=== PATIENT | female | born 1980 | race Caucasian/White ===

== ENCOUNTER 2016-08-28 12:00 | Emergency (ER) | payer MEDICARE, MEDICAID ==
--- NOTE | 2016-08-28 12:04 | EDM.PDOC ---
ED HPI GI/ABDOMINAL - General Chief Complaint: Abdominal Pain Stated Complaint: stomach Time Seen by Provider: 08/28/16 12:03 Source of Information: Reports: Patient, Old records, RN, RN notes reviewed History Limitations: Reports: No limitations - History of Present Illness INITIAL COMMENTS - FREE TEXT/NARRATIVE: C/O onset of generalized lower abdominal pain yesterday. Pt reports no stool output from her ostomy for approx. 30 hours, with liquid stooling the day prior to that. Denies blood in stool, mucus, fever/chills, N/V, or flank pain. Timing/Duration: Reports: Constant Location: generalized (lower abd.) Quality: Reports: ache, cramping Severity: moderate Improves with: Reports: other (nothing) Worsens with: Reports: other (nothing) Associated Symptoms (-Female): Reports: denies other symptoms - Related Data Allergies/ADRs: Allergies Allergy/AdvReac Type Severity Reaction Status Date / Time zolpidem tartrate Allergy Hallucinati Verified 08/28/16 12:09 [From Fernando] ons Home Meds: Home Meds Albuterol Sulfate 1.25 mg IH ASDIRECTED PRN 02/07/16 [History] Past Medical History HEENT History: Reports: None Cardiovascular History: Reports: Other (see below) Other Cardiovascular History: Sinus tach Respiratory History: Reports: Asthma, COPD Gastrointestinal History: Reports: Bowel obstruction, GERD Genitourinary History: Reports: Renal calculus [employer] History: Reports: None Musculoskeletal History: Reports: None Neurological History: Reports: None Psychiatric History: Reports: Anxiety, Depression Endocrine/Metabolic History: Reports: None Hematologic History: Reports: None Immunologic History: Reports: None Oncologic (Cancer) History: Reports: None Dermatologic History: Reports: None - Infectious Disease History Infectious Disease History: Reports: MRSA - Past Surgical History Head Surgeries/Procedures: Reports: None HEENT Surgical History: Reports: Myringotomy w tube(s), Tonsillectomy Cardiovascular Surgical History: Reports: Other (see below) Other Cardiovascular Surgeries/Procedures: ablations x4 GI Surgical History: Reports: Cholecystectomy, Colon, Colonoscopy, Small bowel, Other (see below) Other GI Surgeries/Procedures: ileostomy, has had 17 surg since ileostomy. Most recent was march 2016. Female Surgical History: Reports: section Other Female Surgeries/Procedures: Iliostomy tube Social & Family History - Family History Family Medical History: Noncontributory - Tobacco Use Smoking Status *Q: Current Every Day Smoker Years of Tobacco use: 10 Packs/Tins Daily: 1 Used Tobacco, but Quit: No Second Hand Smoke Exposure: Yes - Caffeine Use Caffeine Use: Reports: Coffee Other Caffeine Use: [facility] 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 ED EXAM, GI/ABD - Physical Exam Exam: See Below Exam Limited By: No limitations General Appearance: alert, WD/WN, no apparent distress Neck: normal inspection Respiratory/Chest: no respiratory distress, lungs clear, normal breath sounds, no accessory muscle use, chest non-tender Cardiovascular: regular rate, rhythm, no edema, tachycardia GI/Abdominal: soft, no distention, no abnormal bruit, hypoactive bowel sounds, tympanic bowel sounds, tenderness (gen. lower abd. tenderness without peritoneal signs). No: guarding, rebound, rigidity (Female) Exam: Deferred Rectal (Female) Exam: Deferred Back Exam: normal inspection. No: CVA tenderness (L), CVA tenderness (R) Extremities: normal inspection Neurological: alert, oriented, no motor/sensory deficits Psychiatric: flat affect Skin Exam: Warm, Dry, Intact, Normal color, No rash Course - Vital Signs Last Recorded V/S: Last Vital Signs Temp 36.3 C 08/28/16 12:04 Pulse 110 H 08/28/16 12:04 Resp 18 08/28/16 12:04 BP 91/67 08/28/16 12:04 Pulse Ox 99 08/28/16 12:04 - Orders/Labs/Meds Orders: Active Orders 24 hr Category Date Time Status Peripheral IV Care [RC] . DIRECTED Care 08/28/16 12:45 Active CHLAMYDIA TRACHOMATIS/GC AMPLF Routine Lab 08/28/16 12:52 Received CULTURE URINE [RM] Stat Lab 08/28/16 12:52 Received Sodium Chloride 0.9% [Saline Flush] Med 08/28/16 12:45 Active 10 ml FLUSH ASDIRECTED PRN cefTRIAXone [Rocephin] 1 gm Med 08/28/16 14:40 Ordered Sodium Chloride 0.9% [Normal Saline] 50 ml IV ONETIME Peripheral IV Insertion Adult [OM.PC] Stat Oth 08/28/16 12:45 Ordered Medication Orders Ceftriaxone Sodium 1 gm/ (Sodium Chloride) 50 mls @ 100 mls/hr IV ONETIME ONE Stop: 08/28/16 15:09 Last Admin: 08/28/16 14:48 Dose: 100 mls/hr Sodium Chloride (Saline Flush) 10 ml FLUSH ASDIRECTED PRN PRN Reason: Keep Vein Open Last Admin: 08/28/16 12:50 Dose: 10 ml Labs: Laboratory Tests 08/28/16 08/28/16 08/28/16 Range/Units 12:20 12:20 12:52 WBC 11.0 H (5.0-10.0) 10^3/uL RBC 5.78 H (4.2-5.4) 10^6/uL Hgb 15.1 (12.0-16.0) g/dL Hct 45.9 (37.0-47.0) % MCV 79.4 L (80-100) fL MCH 26.1 L (27.0-34.0) pg MCHC 32.9 L (33.0-35.0) g/dL Plt Count 303 (150-450) 10^3/uL Neut % (Auto) 77.6 H (42.2-75.2) % Lymph % (Auto) 16.2 L (20.5-50.1) % [place] % (Auto) 5.2 (2-8) % Eos % (Auto) 0.8 L (1.0-3.0) % Baso % (Auto) 0.2 (0.0-1.0) % Sodium 132 L (135-145) mmol/L Potassium 4.3 (3.6-5.0) mmol/L Chloride 98 L (101-111) mmol/L Carbon Dioxide 24.0 (21.0-31.0) mmol/L Anion Gap 14.3 BUN 19 H (7-18) mg/dL Creatinine 0.8 (0.6-1.3) mg/dL Est Cr Clr Drug Dosing 81.97 mL/min Estimated GFR (MDRD) > 60 BUN/Creatinine Ratio 23.75 Glucose 97 (74-105) mg/dL Calcium 10.2 (8.4-10.2) mg/dl Total Bilirubin 1.0 (0.2-1.0) mg/dL AST 14 (10-42) IU/L ALT 9 L (10-60) IU/L Alkaline Phosphatase 68 (42-121) IU/L Total Protein 8.8 H (6.7-8.2) g/dl Albumin 4.5 (3.2-5.5) g/dl Globulin 4.3 Albumin/Globulin Ratio 1.05 Amylase 29 (28-100) U/L Lipase 30 (22-51) U/L Urine Color (YELLOW) Urine Appearance (CLEAR) Urine pH (5.0-9.0) Ur Specific [place] (1.005-1.030) Urine Protein (NEGATIVE) Urine Glucose (UA) (NEGATIVE) Urine Ketones (NEGATIVE) Urine Occult Blood (NEGATIVE) Urine Nitrite (NEGATIVE) Urine Bilirubin (NEGATIVE) Urine Urobilinogen (0.2-1.0) mg/dL Ur Leukocyte Esterase (NEGATIVE) Urine RBC /HPF Urine WBC (0-5/HPF) /HPF Ur Epithelial Cells /HPF Urine Bacteria (0-FEW/HPF) /HPF Urine HCG, Qual Urine Opiates Screen Positive H (NEGATIVE) Ur Oxycodone Screen Negative (NEGATIVE) Urine Methadone Screen Negative (NEGATIVE) Ur Barbiturates Screen Negative (NEGATIVE) U Tricyclic Antidepress Negative (NEGATIVE) Ur Phencyclidine Scrn Negative (NEGATIVE) Ur Amphetamine Screen Positive H (NEGATIVE) U Methamphetamines Scrn Positive H (NEGATIVE) Urine MDMA Screen Negative (NEGATIVE) U Benzodiazepines Scrn Negative (NEGATIVE) Urine Cocaine Screen Negative (NEGATIVE) U Marijuana (THC) Screen Negative (NEGATIVE) 08/28/16 08/28/16 Range/Units 12:52 12:52 WBC (5.0-10.0) 10^3/uL RBC (4.2-5.4) 10^6/uL Hgb (12.0-16.0) g/dL Hct (37.0-47.0) % MCV (80-100) fL MCH (27.0-34.0) pg MCHC (33.0-35.0) g/dL Plt Count (150-450) 10^3/uL Neut % (Auto) (42.2-75.2) % Lymph % (Auto) (20.5-50.1) % [place] % (Auto) (2-8) % Eos % (Auto) (1.0-3.0) % Baso % (Auto) (0.0-1.0) % Sodium (135-145) mmol/L Potassium (3.6-5.0) mmol/L Chloride (101-111) mmol/L Carbon Dioxide (21.0-31.0) mmol/L Anion Gap BUN (7-18) mg/dL Creatinine (0.6-1.3) mg/dL Est Cr Clr Drug Dosing mL/min Estimated GFR (MDRD) BUN/Creatinine Ratio Glucose (74-105) mg/dL Calcium (8.4-10.2) mg/dl Total Bilirubin (0.2-1.0) mg/dL AST (10-42) IU/L ALT (10-60) IU/L Alkaline Phosphatase (42-121) IU/L Total Protein (6.7-8.2) g/dl Albumin (3.2-5.5) g/dl Globulin Albumin/Globulin Ratio Amylase (28-100) U/L Lipase (22-51) U/L Urine Color Yellow (YELLOW) Urine Appearance Cloudy (CLEAR) Urine pH 5.0 (5.0-9.0) Ur Specific [place] <= 1.005 (1.005-1.030) Urine Protein 30 H (NEGATIVE) Urine Glucose (UA) Negative (NEGATIVE) Urine Ketones Negative (NEGATIVE) Urine Occult Blood Large H (NEGATIVE) Urine Nitrite Positive H (NEGATIVE) Urine Bilirubin Negative (NEGATIVE) Urine Urobilinogen 0.2 (0.2-1.0) mg/dL Ur Leukocyte Esterase Small H (NEGATIVE) Urine RBC 50-75 H /HPF Urine WBC 50-75 H (0-5/HPF) /HPF Ur Epithelial Cells Moderate H /HPF Urine Bacteria Rare (0-FEW/HPF) /HPF Urine HCG, Qual Negative Urine Opiates Screen (NEGATIVE) Ur Oxycodone Screen (NEGATIVE) Urine Methadone Screen (NEGATIVE) Ur Barbiturates Screen (NEGATIVE) U Tricyclic Antidepress (NEGATIVE) Ur Phencyclidine Scrn (NEGATIVE) Ur Amphetamine Screen (NEGATIVE) U Methamphetamines Scrn (NEGATIVE) Urine MDMA Screen (NEGATIVE) U Benzodiazepines Scrn (NEGATIVE) Urine Cocaine Screen (NEGATIVE) U Marijuana (THC) Screen (NEGATIVE) Meds: Medications Generic Name Dose Route Start Last Admin Trade Name Freq PRN Reason Stop Dose Admin Ceftriaxone Sodium 1 gm/ 50 mls @ 100 mls/hr 08/28/16 14:40 08/28/16 14:48 Sodium Chloride IV 08/28/16 15:09 100 mls/hr ONETIME ONE Administration Sodium Chloride 10 ml 08/28/16 12:45 08/28/16 12:50 Saline Flush FLUSH 10 ml ASDIRECTED PRN Administration Keep Vein Open Discontinued Medications Generic Name Dose Route Start Last Admin Trade Name Freq PRN Reason Stop Dose Admin Azithromycin 1,000 mg 08/28/16 14:40 08/28/16 14:48 Zithromax PO 08/28/16 14:41 1,000 mg ONETIME ONE Administration Hydromorphone HCl 1 mg 08/28/16 12:44 08/28/16 12:51 Dilaudid IVPUSH 08/28/16 12:45 1 mg ONETIME ONE Administration Sodium Chloride 1,000 mls @ 999 mls/hr 08/28/16 12:44 08/28/16 12:52 Normal Saline IV 08/28/16 13:44 999 mls/hr .BOLUS ONE Administration Iopamidol 75 ml 08/28/16 12:48 08/28/16 13:20 Isovue-300 (61%) IVPUSH 08/28/16 12:49 75 ml ONETIME ONE Administration Ondansetron HCl 4 mg 08/28/16 12:44 08/28/16 12:51 Zofran IV 08/28/16 12:45 4 mg ONETIME ONE Administration - Radiology Interpretation Free Text/Narrative:: CT Abd/Pelvis: no SBO, thickened uterus, see Rad. report. Departure - Departure Time of Disposition: 14:43 Disposition: Home, Self-Care 01 Condition: fair Clinical Impression: Abdominal pain Qualifiers: Abdominal location: lower abdomen, unspecified Qualified Code(s): R10.30 - Lower abdominal pain, unspecified UTI (urinary tract infection) Qualifiers: Urinary tract infection type: site unspecified Hematuria presence: without hematuria Qualified Code(s): N39.0 - Urinary tract infection, site not specified Menorrhagia Qualifiers: Menorrahagia type: with regular cycle Qualified Code(s): N92.0 - Excessive and frequent menstruation with regular cycle Instructions: Abdominal Pain, Adult, [id number], Constipation, Adult, Easy-to -Read, Menorrhagia, [id number] Forms: ED Department Discharge Additional Instructions: Rx: Cipro 500mg Rx: Zofran 4mg ODT Drink plenty of water. Follow up in clinic in 3 to 4 days with your doctor for recheck, repeat urine test, and for further evaluation of your heavy periods and uterus CT scan findings. Return to ER if worse at any time. - My Orders Last 24 Hours: My Active Orders 08/28/16 12:45 Peripheral IV Care [RC] . DIRECTED Sodium Chloride 0.9% [Saline Flush] 10 ml FLUSH ASDIRECTED PRN Peripheral IV Insertion Adult [OM.PC] Stat 08/28/16 12:52 CHLAMYDIA TRACHOMATIS/GC AMPLF Routine CULTURE URINE [RM] Stat 08/28/16 14:40 cefTRIAXone [Rocephin] 1 gm Sodium Chloride 0.9% [Normal Saline] 50 ml IV ONETIME - Assessment/Plan Last 24 Hours: My Active Orders 08/28/16 12:45 Peripheral IV Care [RC] . DIRECTED Sodium Chloride 0.9% [Saline Flush] 10 ml FLUSH ASDIRECTED PRN Peripheral IV Insertion Adult [OM.PC] Stat 08/28/16 12:52 CHLAMYDIA TRACHOMATIS/GC AMPLF Routine CULTURE URINE [RM] Stat 08/28/16 14:40 cefTRIAXone [Rocephin] 1 gm Sodium Chloride 0.9% [Normal Saline] 50 ml IV ONETIME
[2016-08-28] MEDS ORDERED: Sodium Chloride 0.9% 1,000 ML IV ONE (12:44)
[2016-08-28] MEDS ORDERED: HYDROmorphone 1 MG/ML Syringe IVPUSH ONE (12:44)
[2016-08-28] MEDS ORDERED: Ondansetron 4 MG/2 ML SDV IV ONE (12:44)
[2016-08-28] MEDS ORDERED: Sodium Chloride 0.9% 10 ML Syringe FLUSH PRN (12:45)
[2016-08-28] MEDS ORDERED: Iopamidol 612 MG/ML 75 ML Bottle IVPUSH ONE (12:48)
[2016-08-28 13:03] LABS: CHLORIDE,CL 98 mmol/L (101-111); SODIUM,NA 132 mmol/L (135-145)
--- NOTE | 2016-08-28 13:41 | CT ---
CLINICAL HISTORY: 32-year-old 120 pound female smoker with abdominal pain and "no ostomy output for 30 hours". History of colon surgery (colostomy) and cholecystectomy. SCAN TECHNIQUE: Volume acquisition of data from the abdomen and pelvis obtained without oral but dur ing the intravenous administration 75 cc (3 cc/sec via injector) nonionic Isovue contrast while the patient was lying supine on the Siemens multislice CT scanner [facility]. All data archived in the PACS system for storage, reformatting and study. INTERPRETATION: 1. Fluid-filled distended stomach in the left upper quadrant but there is a generalized paucity of f luid in the small intestine and no stool appreciated in the remaining colon (apparent ileostomy righ t lower quadrant). No current signs of mechanical small bowel obstruction. 2. Surgical sutures in the pelvis and gallbladder fossa right upper quadrant. 3. Proliferative appearing endometrium with fluid (sac?) centrally, in the uterus. ? Serum HCG? 4. Liver, spleen, pancreas, adrenal glands and kidneys anatomically correct (solitary large 9.9 x 7. 5 mm calcification pelvis left kidney). No other signs of nephrolithiasis or obstructive uropathy. 5. No pelvic or abdominal mass lesion, ascites or free intraperitoneal air. Normal aorta. 6. Lung bases clear. Lumbar spine unremarkable. CONCLUSION: Postoperative changes. Intrauterine ? (See above). Clinical? Ileostomy right lo wer quadrant. No current signs of mechanical small bowel obstruction.
[2016-08-28] MEDS ORDERED: cefTRIAXone 1 GM in Sodium Chloride 0.9% 50 ML IV ONE (14:40)
[2016-08-28] MEDS ORDERED: Azithromycin 250 MG Tab PO ONE (14:40)
[2016-08-28 14:52] VITALS: BP 91/63
== END 2016-08-28 15:24 | disposition home or self-care (01) ==
LOC: DL.ED 12:00
DX: N39.0 Urinary tract infection, site not specified (principal); N92.0 Excessive and frequent menstruation with regular cycle; J45.909 Unspecified asthma, uncomplicated; J44.9 Chronic obstructive pulmonary disease, unspecified; K21.9 Gastro-esophageal reflux disease without esophagitis; F41.9 Anxiety disorder, unspecified; F17.210 Nicotine dependence, cigarettes, uncomplicated; F32.9 Major depressive disorder, single episode, unspecified; Z98.890 Other specified postprocedural states; Z90.49 Acquired absence of other specified parts of digestive tract; Z88.8 Allergy status to other drugs, medicaments and biological substances
CPT/HCPCS: 36415; 74177; 80053; 80305; 81001; 81025; 82150; 83690; 85025; 87086; 87088; 87186; 87491; 87591; 96361; 96365; 96375; 99284; A9270; J0696; J1170; J2405; J7030; J7050; Q9967

== ENCOUNTER 2016-11-23 11:38 | Emergency (ER) | payer MEDICARE, BC ==
[2016-11-23] MEDS ORDERED: Sodium Chloride 0.9% 10 ML Syringe FLUSH PRN (12:04)
--- NOTE | 2016-11-23 12:05 | EDM.PDOC ---
ED HPI GENERAL MEDICAL PROBLEM - General Chief Complaint: Abdominal Pain Stated Complaint: [id number] STOMACH Time Seen by Provider: 11/23/16 11:58 Source of Information: Reports: Patient - History of Present Illness INITIAL COMMENTS - FREE TEXT/NARRATIVE: patient has had several abd sx resulting in colostomy- today presents with diffuse abd pain- and decrease colostomy output for the last 12 hours. no nausea no vomiting. Location: Reports: Abdomen Quality: Reports: Ache, Dull Severity: Moderate Improves with: Reports: None Worsens with: Reports: None Treatments STRUCTURAL MANAGER: Denies: Acetaminophen, Aspirin Abdominal Pain Score (Numeric/FACES): 8 - Related Data Allergies Allergy/AdvReac Type Severity Reaction Status Date / Time zolpidem tartrate Allergy Hallucinati Verified 11/23/16 11:44 [From Fernando] ons Home Meds: Home Meds Albuterol Sulfate 1.25 mg IH ASDIRECTED PRN 02/07/16 [History] Past Medical History HEENT History: Reports: None Cardiovascular History: Reports: Other (See Below) Other Cardiovascular History: wolfs parkinson white Respiratory History: Reports: Asthma, COPD Gastrointestinal History: Reports: Bowel Obstruction, GERD Genitourinary History: Reports: Renal Calculus 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 Musculoskeletal History: Reports: None Neurological History: Reports: None Psychiatric History: Reports: Anxiety, Depression Endocrine/Metabolic History: Reports: None Hematologic History: Reports: None Immunologic History: Reports: None Oncologic (Cancer) History: Reports: None Dermatologic History: Reports: None - Infectious Disease History Infectious Disease History: Reports: MRSA - Past Surgical History Head Surgeries/Procedures: Reports: None HEENT Surgical History: Reports: Myringotomy w Tube(s), Tonsillectomy GI Surgical History: Reports: Cholecystectomy, Colon, Colonoscopy, Small Bowel, Other (See Below) Female Surgical History: Reports: Section Social & Family History - Family History Family Medical History: Noncontributory - Tobacco Use Smoking Status *Q: Current Every Day Smoker Years of Tobacco use: 16 Packs/Tins Daily: 1 Used Tobacco, but Quit: No Second Hand Smoke Exposure: Yes - Caffeine Use Caffeine Use: Reports: Soda Other Caffeine Use: mt. dewaylon 3-4/day - Alcohol Use Days Per Week of Alcohol Use: 0 - Recreational Drug Use Recreational Drug Use: No Drug Use in Last 12 Months: Yes Recreational Drug Type: Reports: Marijuana/Hashish Recreational Drug Use Frequency: Weekly - Living Situation & Occupation Living situation: Reports: Single Occupation: Employed ED ROS GENERAL - Review of Systems Review Of Systems: See Below Constitutional: Denies: Fever, Chills, Malaise, Weakness HEENT: Reports: No Symptoms Respiratory: Reports: No Symptoms Cardiovascular: Reports: No Symptoms GI/Abdominal: Reports: Abdominal Pain Skin: Reports: No Symptoms Neurological: Reports: No Symptoms Psychiatric: Reports: Anxiety ED EXAM, GI/ABD - Physical Exam Exam: See Below Exam Limited By: No Limitations General Appearance: Alert, Anxious Head: Atraumatic, Normocephalic Neck: Normal Inspection, Supple, Non-Tender, Full Range of Motion Respiratory/Chest: No Respiratory Distress, Lungs Clear, Normal Breath Sounds, No Accessory Muscle Use, Chest Non-Tender Cardiovascular: Normal Peripheral Pulses, Regular Rate, Rhythm, No Edema, No Gallop, No JVD, No Murmur, No Rub GI/Abdominal: Soft, No Distention, No Abnormal Bruit, No Mass, Hypoactive Bowel Sounds, Other (colostomy intact-) Course - Vital Signs Last Recorded V/S: Last Vital Signs Temp 98.6 F 11/23/16 13:08 Pulse 86 11/23/16 13:08 Resp 16 11/23/16 13:08 BP 98/56 L 11/23/16 13:08 Pulse Ox 100 11/23/16 13:08 - Orders/Labs/Meds Orders: Active Orders 24 hr Category Date Time Status CULTURE BLOOD [BC] Stat Lab 11/23/16 12:58 Received CULTURE URINE [RM] Stat Lab 11/23/16 12:06 Received Sodium Chloride 0.9% [Saline Flush] Med 11/23/16 12:04 Active 10 ml FLUSH ASDIRECTED PRN cefTRIAXone [Rocephin] 1 gm Med 11/23/16 13:15 Active Sodium Chloride 0.9% [Normal Saline] 50 ml IV ONETIME Saline Lock Insert [OM.PC] Routine Oth 11/23/16 12:04 Ordered Medication Orders Ceftriaxone Sodium 1 gm/ (Sodium Chloride) 50 mls @ 100 mls/hr IV ONETIME ONE Stop: 11/23/16 13:44 Last Admin: 11/23/16 13:23 Dose: Sodium Chloride (Saline Flush) 10 ml FLUSH ASDIRECTED PRN PRN Reason: Keep Vein Open Last Admin: 11/23/16 12:10 Dose: 10 ml Labs: Laboratory Tests 11/23/16 11/23/16 11/23/16 Range/Units 12:00 12:05 12:05 WBC 14.7 H (5.0-10.0) 10^3/uL RBC 4.73 (4.2-5.4) 10^6/uL Hgb 13.3 (12.0-16.0) g/dL Hct 40.5 (37.0-47.0) % MCV 85.6 (80-100) fL MCH 28.1 (27.0-34.0) pg MCHC 32.8 L (33.0-35.0) g/dL Plt Count 221 (150-450) 10^3/uL Neut % (Auto) 81.1 H (42.2-75.2) % Lymph % (Auto) 11.0 L (20.5-50.1) % Greenlee % (Auto) 6.7 (2-8) % Eos % (Auto) 1.1 (1.0-3.0) % Baso % (Auto) 0.1 (0.0-1.0) % Sodium 135 (135-145) mmol/L Potassium 3.9 (3.6-5.0) mmol/L Chloride 103 (101-111) mmol/L Carbon Dioxide 24.0 (21.0-31.0) mmol/L Anion Gap 11.9 BUN 9 (7-18) mg/dL Creatinine 0.6 (0.6-1.3) mg/dL Est Cr Clr Drug Dosing 104.06 mL/min Estimated GFR (MDRD) > 60 BUN/Creatinine Ratio 15.00 Glucose 91 (74-105) mg/dL Calcium 8.9 (8.4-10.2) mg/dl Total Bilirubin 0.8 (0.2-1.0) mg/dL AST 16 (10-42) IU/L ALT 7 L (10-60) IU/L Alkaline Phosphatase 62 (42-121) IU/L Creatine Kinase 31 (26-174) IU/L Total Protein 6.9 (6.7-8.2) g/dl Albumin 3.5 (3.2-5.5) g/dl Globulin 3.4 Albumin/Globulin Ratio 1.03 Lipase 30 (22-51) U/L Urine Color (YELLOW) Urine Appearance (CLEAR) Urine pH (5.0-9.0) Ur Specific [place] (1.005-1.030) Urine Protein (NEGATIVE) Urine Glucose (UA) (NEGATIVE) Urine Ketones (NEGATIVE) Urine Occult Blood (NEGATIVE) Urine Nitrite (NEGATIVE) Urine Bilirubin (NEGATIVE) Urine Urobilinogen (0.2-1.0) mg/dL Ur Leukocyte Esterase (NEGATIVE) Urine RBC /HPF Urine WBC (0-5/HPF) /HPF Ur Epithelial Cells /HPF Urine Bacteria (0-FEW/HPF) /HPF Urinalysis Comment Urine HCG, Qual Negative 11/23/16 Range/Units 12:06 WBC (5.0-10.0) 10^3/uL RBC (4.2-5.4) 10^6/uL Hgb (12.0-16.0) g/dL Hct (37.0-47.0) % MCV (80-100) fL MCH (27.0-34.0) pg MCHC (33.0-35.0) g/dL Plt Count (150-450) 10^3/uL Neut % (Auto) (42.2-75.2) % Lymph % (Auto) (20.5-50.1) % Greenlee % (Auto) (2-8) % Eos % (Auto) (1.0-3.0) % Baso % (Auto) (0.0-1.0) % Sodium (135-145) mmol/L Potassium (3.6-5.0) mmol/L Chloride (101-111) mmol/L Carbon Dioxide (21.0-31.0) mmol/L Anion Gap BUN (7-18) mg/dL Creatinine (0.6-1.3) mg/dL Est Cr Clr Drug Dosing mL/min Estimated GFR (MDRD) BUN/Creatinine Ratio Glucose (74-105) mg/dL Calcium (8.4-10.2) mg/dl Total Bilirubin (0.2-1.0) mg/dL AST (10-42) IU/L ALT (10-60) IU/L Alkaline Phosphatase (42-121) IU/L Creatine Kinase (26-174) IU/L Total Protein (6.7-8.2) g/dl Albumin (3.2-5.5) g/dl Globulin Albumin/Globulin Ratio Lipase (22-51) U/L Urine Color Yellow (YELLOW) Urine Appearance Cloudy (CLEAR) Urine pH 5.0 (5.0-9.0) Ur Specific [place] >= 1.030 (1.005-1.030) Urine Protein 30 H (NEGATIVE) Urine Glucose (UA) Negative (NEGATIVE) Urine Ketones Negative (NEGATIVE) Urine Occult Blood Large H (NEGATIVE) Urine Nitrite Positive H (NEGATIVE) Urine Bilirubin Negative (NEGATIVE) Urine Urobilinogen 0.2 (0.2-1.0) mg/dL Ur Leukocyte Esterase Small H (NEGATIVE) Urine RBC 5-10 H /HPF Urine WBC 10-20 H (0-5/HPF) /HPF Ur Epithelial Cells Many H /HPF Urine Bacteria Many H (0-FEW/HPF) /HPF Urinalysis Comment Urine HCG, Qual Meds: Medications Generic Name Dose Route Start Last Admin Trade Name Freq PRN Reason Stop Dose Admin Ceftriaxone Sodium 1 gm/ 50 mls @ 100 mls/hr 11/23/16 13:15 11/23/16 13:23 Sodium Chloride IV 11/23/16 13:44 Not Given ONETIME ONE Sodium Chloride 10 ml 11/23/16 12:04 11/23/16 12:10 Saline Flush FLUSH 10 ml ASDIRECTED PRN Administration Keep Vein Open Discontinued Medications Generic Name Dose Route Start Last Admin Trade Name Freq PRN Reason Stop Dose Admin Ceftriaxone Sodium Confirm 11/23/16 13:18 11/23/16 13:23 Rocephin Administered 11/23/16 13:19 1 gm Dose Administration 1 gm .ROUTE .STK-MED ONE Sodium Chloride 1,000 mls @ 999 mls/hr 11/23/16 12:10 11/23/16 12:12 Normal Saline IV 11/23/16 13:10 999 mls/hr .BOLUS ONE Administration Iopamidol 75 ml 11/23/16 13:01 11/23/16 13:08 Isovue-300 (61%) IVPUSH 11/23/16 13:02 75 ml ONETIME ONE Administration Morphine Sulfate 4 mg 11/23/16 12:25 11/23/16 12:29 Morphine IVPUSH 11/23/16 12:26 4 mg ONETIME ONE Administration Ondansetron HCl 4 mg 11/23/16 12:25 11/23/16 12:29 Zofran IV 11/23/16 12:26 4 mg ONETIME ONE Administration - Radiology Interpretation Free Text/Narrative:: CT abd/ pelvis with IV constrast- shows multiple distended (fluid-filled) loops of small bowels there are some air fluid level suggesting high grade mechanical bowel obstruction. per radiology report. - Re-Assessments/Exams Free Text/Narrative Re-Assessment/Exam: 11/23/16 13:35 Patient was told of results and need for transfer for surgical evaluation of small bowel obstruction. Patient states she must leave b/c she does not have anyone to take care of her son. She was advised of the seriousness of this diagnosis and the need to be seen by surgery very soon. she signed out against medical advise. Departure - Departure Time of Disposition: 13:32 Disposition: Against Medical Advice 07 Condition: fair (pain controlled ) Clinical Impression: Small bowel obstruction Abdominal pain Qualifiers: Abdominal location: lower abdomen, unspecified Qualified Code(s): R10.30 - Lower abdominal pain, unspecified UTI (urinary tract infection) Qualifiers: Urinary tract infection type: site unspecified Hematuria presence: without hematuria Qualified Code(s): N39.0 - Urinary tract infection, site not specified - Discharge Information Forms: ED Department Discharge Additional Instructions: YOU have a small bowel obstruction and need surgery- YOU are leaving against medical advise --but NEED to be seen by surgery in [place] or [facility] where your GI doctor is located. RETURN when childcare is taken care of if not able to go to [place] or [facility] - My Orders Last 24 Hours: My Active Orders 11/23/16 12:04 Sodium Chloride 0.9% [Saline Flush] 10 ml FLUSH ASDIRECTED PRN Saline Lock Insert [OM.PC] Routine 11/23/16 12:06 CULTURE URINE [RM] Stat 11/23/16 12:58 CULTURE BLOOD [BC] Stat 11/23/16 13:15 cefTRIAXone [Rocephin] 1 gm Sodium Chloride 0.9% [Normal Saline] 50 ml IV ONETIME - Assessment/Plan Last 24 Hours: My Active Orders 11/23/16 12:04 Sodium Chloride 0.9% [Saline Flush] 10 ml FLUSH ASDIRECTED PRN Saline Lock Insert [OM.PC] Routine 11/23/16 12:06 CULTURE URINE [RM] Stat 11/23/16 12:58 CULTURE BLOOD [BC] Stat 11/23/16 13:15 cefTRIAXone [Rocephin] 1 gm Sodium Chloride 0.9% [Normal Saline] 50 ml IV ONETIME
[2016-11-23] MEDS ORDERED: Sodium Chloride 0.9% 1,000 ML IV ONE (12:10)
[2016-11-23] MEDS ORDERED: Morphine 4 MG/ML Syringe IVPUSH ONE (12:25)
[2016-11-23] MEDS ORDERED: Ondansetron 4 MG/2 ML SDV IV ONE (12:25)
[2016-11-23 12:34] LABS: CHLORIDE,CL 103 mmol/L (101-111); SODIUM,NA 135 mmol/L (135-145)
[2016-11-23] MEDS ORDERED: Iopamidol 612 MG/ML 75 ML Bottle IVPUSH ONE (13:01)
[2016-11-23 13:08] VITALS: BP 98/56
[2016-11-23] MEDS ORDERED: cefTRIAXone 1 GM in Sodium Chloride 0.9% 50 ML IV ONE (13:15)
--- NOTE | 2016-11-23 13:16 | CT ---
Clinical history: 36-year-old 110 pound female smoker again in the emergency department with abdomin al pain (obstruction?) ....who has a significant past history of more than 20 abdominal surgeries in cluding cholecystectomy, appendectomy and "bowel obstructions". Please reevaluate this patient with right lower quadrant "colostomy" (ileostomy?). Patient reported on recent August 2016 CT scan to hav e "ileostomy right lower quadrant and other postoperative changes; abnormal uterus; no sign of mecha nical bowel obstruction". Scan technique: Volume acquisition of data from the abdomen and pelvis obtained without oral or IV c ontrast while the patient was lying supine on the Siemens multi slice CT scanner [facility]. All data archived in the PACS system for storage, reformatting and study . Interpretation: Abnormal. 1. Ventral wall defect/surgical ostomy RLQ. Cluster surgical jared sigmoid colon mid pelvis. 2.*Multiple distended (fluid-filled) loops of small intestine line and although mostly filled with f luid there are some air-fluid level suggesting high-grade mechanical bowel obstruction.... Definite change when compared directly to previous CT scan abdomen 28 August 2016. 3. What appears to be gallbladder RUQ with inflamed wall and at least one discrete round intralumina l gallstone. (History "cholecystectomy"?) Clinical correlation please. 4. Surgical clips mid epigastrium and retroperitoneum. Solitary large densely calcified 9.[address] stone in the left renal pelvis. No other signs of nephrolithiasis or obstructive uropathy. 5. Liver cyst, stomach, spleen, pancreas, adrenal glands and kidneys otherwise unremarkable. 6. Uterus with fluid in the endometrial canal. No pelvic or abdominal mass lesion, signs of retroper itoneal lymphadenopathy, ascites or free intraperitoneal air. 7. Normal caliber abdominal aorta. Lumbar spine unremarkable. Lung bases clear. CONCLUSION: Mechanical small bowel obstruction. (See above)
[2016-11-23] MEDS ORDERED: cefTRIAXone 1 GM Vial ONE (13:18)
== END 2016-11-23 13:33 | disposition left against medical advice (07) ==
LOC: DL.ED 11:38
DX: K56.60 Unspecified intestinal obstruction (principal); N39.0 Urinary tract infection, site not specified; J44.9 Chronic obstructive pulmonary disease, unspecified; J45.909 Unspecified asthma, uncomplicated; F17.210 Nicotine dependence, cigarettes, uncomplicated; K21.9 Gastro-esophageal reflux disease without esophagitis; Z88.8 Allergy status to other drugs, medicaments and biological substances; Z96.22 Myringotomy tube(s) status; Z98.890 Other specified postprocedural states; Z90.49 Acquired absence of other specified parts of digestive tract
CPT/HCPCS: 36415; 74177; 80053; 81001; 81025; 82550; 83690; 85025; 87040; 87086; 87088; 87186; 96365; 96375; 99285; J0696; J2270; J2405; J7030; J7050; Q9967

== ENCOUNTER 2016-11-23 15:20 | Emergency (ER) | payer MEDICARE, BC ==
[2016-11-23 15:33] VITALS: BP 102/75
[2016-11-23] MEDS ORDERED: Ondansetron 4 MG/2 ML SDV IV ONE (15:34)
[2016-11-23] MEDS ORDERED: Morphine 4 MG/ML Syringe IVPUSH ONE (15:34)
[2016-11-23] MEDS ORDERED: Sodium Chloride 0.9% 10 ML Syringe FLUSH PRN (15:36)
--- NOTE | 2016-11-23 15:42 | EDM.PDOC ---
ED HPI GENERAL MEDICAL PROBLEM - General Chief Complaint: Abdominal Pain Stated Complaint: [id number] STOMACH Time Seen by Provider: 11/23/16 15:30 Source of Information: Reports: Patient History Limitations: Reports: No Limitations - History of Present Illness INITIAL COMMENTS - FREE TEXT/NARRATIVE: Patient seen here earlier today left AMA and now returns for transfer due to small obstruction Abdomen Pain Score (Numeric/FACES): 8 - Related Data Allergies Allergy/AdvReac Type Severity Reaction Status Date / Time zolpidem tartrate Allergy Hallucinati Verified 11/23/16 11:44 [From Fernando] ons Home Meds: Home Meds Albuterol Sulfate 1.25 mg IH ASDIRECTED PRN 02/07/16 [History] Past Medical History HEENT History: Reports: None Cardiovascular History: Reports: Other (See Below) Other Cardiovascular History: wolfs parkinson white Respiratory History: Reports: Asthma, COPD Gastrointestinal History: Reports: Bowel Obstruction, GERD Genitourinary History: Reports: Renal 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 Musculoskeletal History: Reports: None Neurological History: Reports: None Psychiatric History: Reports: Anxiety, Depression Endocrine/Metabolic History: Reports: None Hematologic History: Reports: None Immunologic History: Reports: None Oncologic (Cancer) History: Reports: None Dermatologic History: Reports: None - Infectious Disease History Infectious Disease History: Reports: MRSA - Past Surgical History Head Surgeries/Procedures: Reports: None HEENT Surgical History: Reports: Myringotomy w Tube(s), Tonsillectomy GI Surgical History: Reports: Cholecystectomy, Colon, Colonoscopy, Small Bowel, Other (See Below) Female Surgical History: Reports: Section Social & Family History - Family History Family Medical History: Noncontributory - Tobacco Use Smoking Status *Q: Current Every Day Smoker Years of Tobacco use: 16 Packs/Tins Daily: 1 Used Tobacco, but Quit: No Second Hand Smoke Exposure: Yes - Caffeine Use Caffeine Use: Reports: None Other Caffeine Use: mtJose De Jesus burdick 3-4/day - Alcohol Use Days Per Week of Alcohol Use: 0 - Recreational Drug Use Recreational Drug Use: No Drug Use in Last 12 Months: Yes Recreational Drug Type: Reports: Marijuana/Hashish Recreational Drug Use Frequency: Weekly - Living Situation & Occupation Living situation: Reports: Single Occupation: Employed ED ROS GENERAL - Review of Systems Review Of Systems: See Below Constitutional: Reports: Fatigue. Denies: Fever, Chills, Malaise HEENT: Reports: No Symptoms Respiratory: Reports: No Symptoms Cardiovascular: Reports: No Symptoms Endocrine: Reports: No Symptoms GI/Abdominal: Reports: Abdominal Pain : Reports: No Symptoms Musculoskeletal: Reports: No Symptoms Skin: Reports: No Symptoms Neurological: Reports: No Symptoms Psychiatric: Reports: No Symptoms ED EXAM, GI/ABD - Physical Exam Exam: See Below Exam Limited By: No Limitations General Appearance: Alert, WD/WN, Anxious Eyes: Bilateral: Normal Appearance Ears: Normal External Exam, Normal Canal, Hearing Grossly Normal, Normal TMs Nose: Normal Inspection, Normal Mucosa, No Blood Throat/Mouth: Normal Inspection, Normal Lips, Normal Teeth, Normal Gums, Normal Oropharynx, Normal Voice, No Airway Compromise Head: Atraumatic, Normocephalic Neck: Normal Inspection, Supple, Non-Tender, Full Range of Motion Respiratory/Chest: No Respiratory Distress, Lungs Clear, Normal Breath Sounds, No Accessory Muscle Use, Chest Non-Tender Cardiovascular: Normal Peripheral Pulses, Regular Rate, Rhythm, No Edema, No Gallop, No JVD, No Murmur, No Rub GI/Abdominal: Soft, Hypoactive Bowel Sounds, Tenderness, Guarding Extremities: Normal Inspection, Normal Range of Motion, Non-Tender, Normal Capillary Refill, No Pedal Edema Neurological: Alert, Oriented, CN II-XII Intact, Normal Cognition, Normal Gait, Normal Reflexes, No Motor/Sensory Deficits Psychiatric: Anxious, Tearful Skin Exam: Warm, Dry, Intact, Normal Color, No Rash Course - Vital Signs Last Recorded V/S: Last Vital Signs Temp 98.2 F 11/23/16 15:32 Pulse 96 11/23/16 15:32 Resp 20 11/23/16 15:32 BP 102/75 11/23/16 15:32 Pulse Ox 100 11/23/16 15:32 - Orders/Labs/Meds Orders: Active Orders 24 hr Category Date Time Status Peripheral IV Care [RC] . DIRECTED Care 11/23/16 15:36 Ordered Sodium Chloride 0.9% [Saline Flush] Med 11/23/16 15:36 Ordered 10 ml FLUSH ASDIRECTED PRN Peripheral IV Insertion Adult [OM.PC] Routine Oth 11/23/16 15:36 Ordered Medication Orders Sodium Chloride (Saline Flush) 10 ml FLUSH ASDIRECTED PRN PRN Reason: Keep Vein Open Meds: Medications Generic Name Dose Route Start Last Admin Trade Name Freq PRN Reason Stop Dose Admin Sodium Chloride 10 ml 11/23/16 15:36 Saline Flush FLUSH ASDIRECTED PRN Keep Vein Open Discontinued Medications Generic Name Dose Route Start Last Admin Trade Name Freq PRN Reason Stop Dose Admin Morphine Sulfate 4 mg 11/23/16 15:34 Morphine IVPUSH 11/23/16 15:35 ONETIME ONE Ondansetron HCl 4 mg 11/23/16 15:34 Zofran IV 11/23/16 15:35 ONETIME ONE - Re-Assessments/Exams Free Text/Narrative Re-Assessment/Exam: 11/23/16 15:48 Patient was discussed with DR. Ray at [facility] in [facility] who is with general sx and he agreedd to see the patient but would not directly admit so patient was discussed with Dr. Davis the hospitalist and was told to send the patient with fluids going. Departure - Departure Time of Disposition: 15:51 (Transfer to [place] @ [facility] Disposition: DC/Tfer to Acute Hospital 02 Condition: good Clinical Impression: Small bowel obstruction Abdominal pain Qualifiers: Abdominal location: lower abdomen, unspecified Qualified Code(s): R10.30 - Lower abdominal pain, unspecified - Discharge Information Forms: ED Department Discharge - My Orders Last 24 Hours: My Active Orders 11/23/16 15:36 Peripheral IV Care [RC] . DIRECTED Sodium Chloride 0.9% [Saline Flush] 10 ml FLUSH ASDIRECTED PRN Peripheral IV Insertion Adult [OM.PC] Routine - Assessment/Plan Last 24 Hours: My Active Orders 11/23/16 15:36 Peripheral IV Care [RC] . DIRECTED Sodium Chloride 0.9% [Saline Flush] 10 ml FLUSH ASDIRECTED PRN Peripheral IV Insertion Adult [OM.PC] Routine
[2016-11-23] MEDS ORDERED: Sodium Chloride 0.9% 1,000 ML IV SCH (16:00)
== END 2016-11-23 16:17 ==
LOC: DL.ED 15:20
DX: K56.60 Unspecified intestinal obstruction (principal); J45.909 Unspecified asthma, uncomplicated; J44.9 Chronic obstructive pulmonary disease, unspecified; F41.9 Anxiety disorder, unspecified; F32.9 Major depressive disorder, single episode, unspecified; F17.210 Nicotine dependence, cigarettes, uncomplicated; Z90.49 Acquired absence of other specified parts of digestive tract; Z88.8 Allergy status to other drugs, medicaments and biological substances; Z96.22 Myringotomy tube(s) status; Z98.890 Other specified postprocedural states; N39.0 Urinary tract infection, site not specified; K21.9 Gastro-esophageal reflux disease without esophagitis
CPT/HCPCS: 36415; 74177; 80053; 81001; 81025; 82550; 83690; 85025; 87040; 87086; 87088; 87186; 96365; 96374; 96375; 99284; 99285; J0696; J2270; J2405; J7030; J7050; Q9967

== ENCOUNTER 2016-12-01 15:16 | Emergency (ER) | payer MEDICARE, BC ==
[2016-12-01 15:36] VITALS: BP 120/70
--- NOTE | 2016-12-01 16:03 | EDM.PDOC ---
ED HPI GENERAL MEDICAL PROBLEM - General Chief Complaint: Abdominal Pain Stated Complaint: [id number] STOMACH Time Seen by Provider: 12/01/16 15:35 Source of Information: Reports: Patient, RN, RN Notes Reviewed History Limitations: Reports: No Limitations - History of Present Illness INITIAL COMMENTS - FREE TEXT/NARRATIVE: Abdominal pain with edema postop day #6, status post open lap for small bowel obstruction. Patient seen by DEE Moeller, 2 days ago and given RX for Dilaudid and Lasix but she is not any better. Today patient began to feel like her abdomen abdomen is distending an may have another small bowel obstruction. Denies fever or chills. Severity: Severe Improves with: Reports: None Worsens with: Reports: None Associated Symptoms: Reports: No Other Symptoms Lower Mid-Anterior Abdomen Pain Score (Numeric/FACES): 7 - Related Data Allergies Allergy/AdvReac Type Severity Reaction Status Date / Time zolpidem tartrate Allergy Hallucinati Verified 11/23/16 11:44 [From Fernando] ons Home Meds: Home Meds Albuterol Sulfate 1.25 mg IH ASDIRECTED PRN 02/07/16 [History] Furosemide [Lasix] 20 mg PO DAILY 12/01/16 [History] HYDROmorphone [Dilaudid] 2 mg PO Q6H PRN 12/01/16 [History] Past Medical History HEENT History: Reports: None Cardiovascular History: Reports: Other (See Below) Other Cardiovascular History: wolfs parkinson white Respiratory History: Reports: Asthma, COPD Gastrointestinal History: Reports: Bowel Obstruction, GERD Genitourinary History: Reports: Renal Calculus [employer]ER History: Reports: None Musculoskeletal History: Reports: None Neurological History: Reports: None Psychiatric History: Reports: Anxiety, Depression Endocrine/Metabolic History: Reports: None Hematologic History: Reports: None Immunologic History: Reports: None Oncologic (Cancer) History: Reports: None Dermatologic History: Reports: None - Infectious Disease History Infectious Disease History: Reports: MRSA - Past Surgical History Head Surgeries/Procedures: Reports: None HEENT Surgical History: Reports: Myringotomy w Tube(s), Tonsillectomy GI Surgical History: Reports: Cholecystectomy, Colon, Colonoscopy, Small Bowel, Other (See Below) (23rd abdominal surgery for small bowel obstruction on 2016.) Other GI Surgeries/Procedures: osteotomy Female Surgical History: Reports: Section Social & Family History - Family History Family Medical History: Noncontributory - Tobacco Use Smoking Status *Q: Current Every Day Smoker Years of Tobacco use: 16 Packs/Tins Daily: 1 Used Tobacco, but Quit: No Second Hand Smoke Exposure: Yes - Caffeine Use Caffeine Use: Reports: None Other Caffeine Use: mt[employer] [place] 3-4/day - Alcohol Use Days Per Week of Alcohol Use: 0 - Recreational Drug Use Recreational Drug Use: No Drug Use in Last 12 Months: Yes Recreational Drug Type: Reports: Marijuana/Hashish Recreational Drug Use Frequency: Weekly - Living Situation & Occupation Living situation: Reports: Single Occupation: Employed ED ROS GENERAL - Review of Systems Review Of Systems: ROS reveals no pertinent complaints other than HPI. ED EXAM, GI/ABD - Physical Exam Exam: See Below Exam Limited By: No Limitations General Appearance: Alert, WD/WN, No Apparent Distress Head: Atraumatic, Normocephalic Neck: Normal Inspection, Supple, Non-Tender, Full Range of Motion Respiratory/Chest: No Respiratory Distress, Lungs Clear, Normal Breath Sounds, No Accessory Muscle Use, Chest Non-Tender Cardiovascular: Regular Rate, Rhythm, Tachycardia GI/Abdominal: Hypoactive Bowel Sounds, Tympanic Bowel Sounds, Tenderness ( generalized), Other (protuberant abdomen, slightly distended. Ostomy bag not removed. Small amount of liquid content in the bag. ) (Female) Exam: Deferred Rectal (Female) Exam: Deferred Back Exam: Normal Inspection, Full Range of Motion, NT Extremities: Pedal Edema (bilateral) Neurological: Alert, Oriented, CN II-XII Intact, Normal Cognition, Normal Gait, Normal Reflexes, No Motor/Sensory Deficits Psychiatric: Anxious Skin Exam: Other (surgical wound well appearing, nos ign of infection or dehiscence.) Course - Vital Signs Last Recorded V/S: Last Vital Signs Temp 36.9 C 12/01/16 15:34 Pulse 105 H 12/01/16 15:34 Resp 16 12/01/16 15:34 BP 120/70 12/01/16 15:34 Pulse Ox 94 L 12/01/16 15:34 - Orders/Labs/Meds Orders: Active Orders 24 hr Category Date Time Status Peripheral IV Care [RC] . DIRECTED Care 12/01/16 16:15 Active Sodium Chloride 0.9% [Saline Flush] Med 12/01/16 16:15 Active 10 ml FLUSH ASDIRECTED PRN Peripheral IV Insertion Adult [OM.PC] Stat Oth 12/01/16 16:15 Ordered Medication Orders Sodium Chloride (Saline Flush) 10 ml FLUSH ASDIRECTED PRN PRN Reason: Keep Vein Open Labs: Laboratory Tests 12/01/16 12/01/16 Range/Units 16:00 16:00 WBC 10.2 H (5.0-10.0) 10^3/uL RBC 3.54 L (4.2-5.4) 10^6/uL Hgb 9.8 L (12.0-16.0) g/dL Hct 29.4 L (37.0-47.0) % MCV 83.1 (80-100) fL MCH 27.7 (27.0-34.0) pg MCHC 33.3 (33.0-35.0) g/dL Plt Count 271 (150-450) 10^3/uL Neut % (Auto) 62.7 (42.2-75.2) % Lymph % (Auto) 21.7 (20.5-50.1) % Kimball % (Auto) 8.0 (2-8) % Eos % (Auto) 7.2 H (1.0-3.0) % Baso % (Auto) 0.4 (0.0-1.0) % Sodium 139 (135-145) mmol/L Potassium 3.6 (3.6-5.0) mmol/L Chloride 105 (101-111) mmol/L Carbon Dioxide 27.0 (21.0-31.0) mmol/L Anion Gap 10.6 BUN 8 (7-18) mg/dL Creatinine 0.4 L (0.6-1.3) mg/dL Est Cr Clr Drug Dosing 163.93 mL/min Estimated GFR (MDRD) > 60 BUN/Creatinine Ratio 20.00 Glucose 81 (74-105) mg/dL Calcium 8.5 (8.4-10.2) mg/dl Total Bilirubin 0.6 (0.2-1.0) mg/dL AST 12 (10-42) IU/L ALT 10 (10-60) IU/L Alkaline Phosphatase 45 (42-121) IU/L Total Protein 5.8 L (6.7-8.2) g/dl Albumin 2.7 L (3.2-5.5) g/dl Globulin 3.1 Albumin/Globulin Ratio 0.87 Amylase 42 (28-100) U/L Lipase 45 (22-51) U/L Meds: Medications Generic Name Dose Route Start Last Admin Trade Name Freq PRN Reason Stop Dose Admin Sodium Chloride 10 ml 12/01/16 16:15 Saline Flush FLUSH ASDIRECTED PRN Keep Vein Open Discontinued Medications Generic Name Dose Route Start Last Admin Trade Name Freq PRN Reason Stop Dose Admin Furosemide 40 mg 12/01/16 17:42 Lasix IVPUSH 12/01/16 17:43 NOW ONE Hydromorphone HCl 1 mg 12/01/16 16:16 12/01/16 16:29 Dilaudid IVPUSH 12/01/16 16:17 1 mg ONETIME ONE Administration Hydromorphone HCl 1 mg 12/01/16 17:41 Dilaudid IVPUSH 12/01/16 17:42 ONETIME ONE Iopamidol 75 ml 12/01/16 16:16 12/01/16 16:56 Isovue-300 (61%) IVPUSH 12/01/16 16:17 75 ml ONETIME ONE Administration - Radiology Interpretation Free Text/Narrative:: CT abdomen and pelvis: Per rad report diseased gallbladder. Ascites (new). Colostomy. Bibasilar lower lobe atelectasis and right pleural effusion. No current signs of mechanical small bowel obstruction. - Re-Assessments/Exams Free Text/Narrative Re-Assessment/Exam: 12/01/16 18:[address] Haley from [facility] surgery department. He agrees that patient should be transferred for admission. Patient is accepted [facility]. Departure - Departure Time of Disposition: 18:10 Disposition: DC/Tfer to Acute Hospital 02 Condition: serious Clinical Impression: Postoperative pain Ascites Qualifiers: Ascites type: other type Qualified Code(s): R18.8 - Other ascites Cholelithiasis Qualifiers: Cholelithiasis location: gallbladder Cholecystitis presence: without cholecystitis Biliary obstruction: without biliary obstruction Qualified Code(s) : K80.20 - Calculus of gallbladder without cholecystitis without obstruction Abdominal pain Qualifiers: Abdominal location: generalized Qualified Code(s): R10.84 - Generalized abdominal pain - Discharge Information Forms: ED Department Discharge, Interfacility Transfer EMTALA - My Orders Last 24 Hours: My Active Orders 12/01/16 16:15 Peripheral IV Care [RC] . DIRECTED Sodium Chloride 0.9% [Saline Flush] 10 ml FLUSH ASDIRECTED PRN Peripheral IV Insertion Adult [OM.PC] Stat - Assessment/Plan Last 24 Hours: My Active Orders 12/01/16 16:15 Peripheral IV Care [RC] . DIRECTED Sodium Chloride 0.9% [Saline Flush] 10 ml FLUSH ASDIRECTED PRN Peripheral IV Insertion Adult [OM.PC] Stat
[2016-12-01] MEDS ORDERED: Sodium Chloride 0.9% 10 ML Syringe FLUSH PRN (16:15)
[2016-12-01] MEDS ORDERED: HYDROmorphone 1 MG/ML Syringe IVPUSH ONE ×2 (16:16→17:41)
[2016-12-01] MEDS ORDERED: Iopamidol 612 MG/ML 75 ML Bottle IVPUSH ONE (16:16)
[2016-12-01 16:42] LABS: CHLORIDE,CL 105 mmol/L (101-111); SODIUM,NA 139 mmol/L (135-145)
--- NOTE | 2016-12-01 17:34 | CT ---
Clinical history: 36-year-old 147 pound female smoker abdominal pain and distention. Rule out small bowel obstruction this patient who has history of cholecystectomy, colon surgery and colostomy. "No signs of mechanical small bowel obstruction" on CT abdomen August 2016 but evidence of "mechanical sm all bowel obstruction" recent [address] exam abdomen. Scan technique: Volume acquisition of data emergency CT scan abdomen and pelvis obtained without ora l contrast but after intravenous administration 73 cc nonionic Isovue 300 contrast while patient was lying supine on the Siemens multi slice CT scanner [place], [place]. All data archived in the PACS system for storage, reformatting and study. Interpretation: Abnormal. 1. Cholelithiasis and pericystic fluid (cholecystitis?) i.e. diseased gallbladder. 2. New evidence of ascites in the paracolic gutters and dependent pelvis since 23 Nov 2016 and... asymmetric dependent new subpulmonic pleural effusion on the right with underlying atelectasis or lo wer lobe infiltrate. 3. Ventral wall defect anteriorly right lower quadrant (colostomy). Fluid-filled nondistended small bowel loops without differential air-fluid levels i.e. doubt mechani brayden obstruction. 4. No new signs of mesenteric/retroperitoneal lymphadenopathy, lytic or abdominal mass lesion, or fr ee intraperitoneal air. 5 normal caliber aortoiliac vessels. 6. Liver, stomach, spleen, pancreas and adrenal glands unremarkable. Normal reniform size axis and c onfiguration without sign of cortical mass lesion or obstructive uropathy. Left renal stone. Normal urinary bladder. Midline uterus. 7. Normal cardiac silhouette. Left lung bases clear. Surgical sutures lower pelvis CONCLUSION: Diseased gallbladder. Ascites (new). Colostomy. Bibasilar lower lobe atelectasis and rig ht pleural effusion. No current signs of mechanical small bowel obstruction.
[2016-12-01] MEDS ORDERED: Furosemide 40 MG/4 ML VIAL IVPUSH ONE (17:42)
== END 2016-12-01 19:55 ==
LOC: DL.ED 15:16
DX: G89.18 Other acute postprocedural pain (principal); R18.8 Other ascites; K80.20 Calculus of gallbladder without cholecystitis without obstruction; J45.909 Unspecified asthma, uncomplicated; J44.9 Chronic obstructive pulmonary disease, unspecified; K21.9 Gastro-esophageal reflux disease without esophagitis; F41.9 Anxiety disorder, unspecified; F32.9 Major depressive disorder, single episode, unspecified; F17.210 Nicotine dependence, cigarettes, uncomplicated; Z79.899 Other long term (current) drug therapy; Z88.8 Allergy status to other drugs, medicaments and biological substances; Z96.22 Myringotomy tube(s) status; Z98.890 Other specified postprocedural states; Z90.49 Acquired absence of other specified parts of digestive tract
CPT/HCPCS: 36415; 74177; 80053; 82150; 83690; 85025; 96374; 96375; 96376; 99285; J1170; J1940; J7050; Q9967; 99284

== ENCOUNTER 2016-12-12 18:44 | Emergency (ER) | payer MEDICARE, BC ==
--- NOTE | 2016-12-12 19:09 | EDM.PDOC ---
ED HPI GENERAL MEDICAL PROBLEM - General Chief Complaint: Abdominal Pain Stated Complaint: POST SURGERY, FELLS LIKE HERNIA COMING OUT Time Seen by Provider: 12/12/16 19:05 Source of Information: Reports: Patient History Limitations: Reports: No Limitations - History of Present Illness INITIAL COMMENTS - FREE TEXT/NARRATIVE: gives recurrent h/o abd' problems, been tranf to [facility] twice over past few weeks had surgeries there. pain constant past 2 days eating normally, denies N/V /D. Middle Abdomen Pain Score (Numeric/FACES): 7 - Related Data Allergies Allergy/AdvReac Type Severity Reaction Status Date / Time zolpidem tartrate Allergy Hallucinati Verified 11/23/16 11:44 [From Fernando] ons Home Meds: Home Meds Albuterol Sulfate 1.25 mg IH ASDIRECTED PRN 02/07/16 [History] Furosemide [Lasix] 20 mg PO DAILY 12/01/16 [History] HYDROmorphone [Dilaudid] 2 mg PO Q6H PRN 12/01/16 [History] Past Medical History HEENT History: Reports: None Cardiovascular History: Reports: Other (See Below) Other Cardiovascular History: wolfs parkinson white Respiratory History: Reports: Asthma, COPD Gastrointestinal History: Reports: Bowel Obstruction, GERD Genitourinary History: Reports: Renal 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 Musculoskeletal History: Reports: None Neurological History: Reports: None Psychiatric History: Reports: Anxiety, Depression Endocrine/Metabolic History: Reports: None Hematologic History: Reports: None Immunologic History: Reports: None Oncologic (Cancer) History: Reports: None Dermatologic History: Reports: None - Infectious Disease History Infectious Disease History: Reports: MRSA - Past Surgical History Head Surgeries/Procedures: Reports: None HEENT Surgical History: Reports: Myringotomy w Tube(s), Tonsillectomy GI Surgical History: Reports: Cholecystectomy, Colon, Colonoscopy, Small Bowel, Other (See Below) Other GI Surgeries/Procedures: osteotomy Female Surgical History: Reports: Section Social & Family History - Family History Family Medical History: Noncontributory - Tobacco Use Smoking Status *Q: Current Every Day Smoker Years of Tobacco use: 16 Packs/Tins Daily: 1 Used Tobacco, but Quit: No Second Hand Smoke Exposure: Yes - Caffeine Use Caffeine Use: Reports: None Other Caffeine Use: mt. [place] 3-4/day - Alcohol Use Days Per Week of Alcohol Use: 0 - Recreational Drug Use Recreational Drug Use: No Drug Use in Last 12 Months: Yes Recreational Drug Type: Reports: Marijuana/Hashish Recreational Drug Use Frequency: Weekly - Living Situation & Occupation Living situation: Reports: Single Occupation: Employed ED ROS GENERAL - Review of Systems Review Of Systems: ROS reveals no pertinent complaints other than HPI. ED EXAM, GI/ABD - Physical Exam Exam: See Below Exam Limited By: No Limitations General Appearance: Alert, WD/WN, Mild Distress, Other (pain) Ears: Hearing Grossly Normal Throat/Mouth: Normal Voice, No Airway Compromise Head: Atraumatic Neck: Non-Tender, Full Range of Motion Respiratory/Chest: No Respiratory Distress Cardiovascular: Regular Rate, Rhythm GI/Abdominal: Hyperactive Bowel Sounds, Tenderness, Guarding, Other (periumb'). No: Distention, Rebound, Rigidity Neurological: Alert, Oriented, Normal Cognition, Normal Gait, No Motor/Sensory Deficits Psychiatric: Tearful Skin Exam: Warm, Dry Lymphatic: No Adenopathy Course - Vital Signs Last Recorded V/S: Last Vital Signs Temp 36.9 C 12/12/16 18:57 Pulse 111 H 12/12/16 18:57 Resp 18 12/12/16 18:57 BP 148/94 H 12/12/16 18:57 Pulse Ox 100 12/12/16 18:57 - Orders/Labs/Meds Orders: Active Orders 24 hr Category Date Time Status Abdomen Pelvis wo Cont [CT] Urgent Exams 12/12/16 19:45 Taken CULTURE BLOOD [BC] Stat Lab 12/12/16 19:15 Received Labs: Laboratory Tests 12/12/16 12/12/16 12/12/16 Range/Units 19:15 19:15 19:15 WBC 11.4 H (5.0-10.0) 10^3/uL RBC 4.28 (4.2-5.4) 10^6/uL Hgb 11.8 L (12.0-16.0) g/dL Hct 35.9 L (37.0-47.0) % MCV 83.9 (80-100) fL MCH 27.6 (27.0-34.0) pg MCHC 32.9 L (33.0-35.0) g/dL Plt Count 415 (150-450) 10^3/uL Neut % (Auto) 51.3 (42.2-75.2) % Lymph % (Auto) 34.2 (20.5-50.1) % Ness % (Auto) 7.1 (2-8) % Eos % (Auto) 6.5 H (1.0-3.0) % Baso % (Auto) 0.9 (0.0-1.0) % Sodium 143 (135-145) mmol/L Potassium 4.2 (3.6-5.0) mmol/L Chloride 108 (101-111) mmol/L Carbon Dioxide 25.0 (21.0-31.0) mmol/L Anion Gap 14.2 BUN 12 (7-18) mg/dL Creatinine 0.6 (0.6-1.3) mg/dL Est Cr Clr Drug Dosing 109.29 mL/min Estimated GFR (MDRD) > 60 BUN/Creatinine Ratio 20.00 Glucose 83 (74-105) mg/dL Lactic Acid 1.8 (0.5-2.2) mmol/L Calcium 9.4 (8.4-10.2) mg/dl Total Bilirubin 0.7 (0.2-1.0) mg/dL AST 16 (10-42) IU/L ALT 9 L (10-60) IU/L Alkaline Phosphatase 62 (42-121) IU/L Total Protein 7.7 (6.7-8.2) g/dl Albumin 4.1 (3.2-5.5) g/dl Globulin 3.6 Albumin/Globulin Ratio 1.14 Amylase 47 (28-100) U/L Lipase 28 (22-51) U/L Meds: Medications Discontinued Medications Generic Name Dose Route Start Last Admin Trade Name Freq PRN Reason Stop Dose Admin Hydrocodone Bitart/Acetaminophen 1 tab 12/12/16 20:04 12/12/16 20:26 [place] 325-10 Mg PO 12/12/16 20:05 Not Given ONETIME ONE Clindamycin HCl 150 mg 12/12/16 20:04 12/12/16 20:25 Cleocin PO 12/12/16 20:05 Not Given ONETIME ONE Hydromorphone HCl 1 mg 12/12/16 19:16 12/12/16 19:25 Dilaudid IVPUSH 12/12/16 19:17 1 mg ONETIME ONE Administration Ondansetron HCl 4 mg 12/12/16 19:16 12/12/16 19:25 Zofran IV 12/12/16 19:17 4 mg ONETIME ONE Administration - Re-Assessments/Exams Free Text/Narrative Re-Assessment/Exam: 12/12/16 21:16 negative results discussed with Pt who is feeling much better now. Departure - Departure Time of Disposition: 21:16 Disposition: Home, Self-Care 01 Condition: Good Clinical Impression: Abdominal pain Qualifiers: Abdominal location: generalized Qualified Code(s): R10.84 - Generalized abdominal pain - Discharge Information Instructions: Abdominal Pain, Adult, [id number] Forms: ED Department Discharge Additional Instructions: 1) avoid processed foods 2) liquids-soft diet next 48 hours 3) follow up at clinic or recheck as needed - My Orders Last 24 Hours: My Active Orders 12/12/16 19:15 CULTURE BLOOD [BC] Stat 12/12/16 19:45 Abdomen Pelvis wo Cont [CT] Urgent - Assessment/Plan Last 24 Hours: My Active Orders 12/12/16 19:15 CULTURE BLOOD [BC] Stat 12/12/16 19:45 Abdomen Pelvis wo Cont [CT] Urgent
[2016-12-12] MEDS ORDERED: HYDROmorphone 1 MG/ML Syringe IVPUSH ONE (19:16)
[2016-12-12] MEDS ORDERED: Ondansetron 4 MG/2 ML SDV IV ONE (19:16)
[2016-12-12 19:42] LABS: CHLORIDE,CL 108 mmol/L (101-111); SODIUM,NA 143 mmol/L (135-145)
[2016-12-12] MEDS ORDERED: Clindamycin HCl 150 MG Cap PO ONE (20:04)
[2016-12-12] MEDS ORDERED: Acetaminophen/HYDROcodone 325-10 MG Tab PO ONE (20:04)
[2016-12-12 21:31] VITALS: BP 128/76
== END 2016-12-12 21:27 | disposition home or self-care (01) ==
LOC: DL.ED 18:44
DX: R10.84 Generalized abdominal pain (principal); J45.909 Unspecified asthma, uncomplicated; J44.9 Chronic obstructive pulmonary disease, unspecified; K21.9 Gastro-esophageal reflux disease without esophagitis; F41.9 Anxiety disorder, unspecified; F32.9 Major depressive disorder, single episode, unspecified; F17.210 Nicotine dependence, cigarettes, uncomplicated; Z96.22 Myringotomy tube(s) status; Z90.49 Acquired absence of other specified parts of digestive tract; Z88.8 Allergy status to other drugs, medicaments and biological substances; Z79.899 Other long term (current) drug therapy; Z98.890 Other specified postprocedural states
CPT/HCPCS: 36415; 74176; 80053; 82150; 83605; 83690; 85025; 87040; 96374; 96375; 99284; J1170; J2405

== ENCOUNTER 2017-05-12 08:31 | Emergency (ER) | payer MEDICARE, MEDICAID ==
[2017-05-12] MEDS ORDERED: Ondansetron 4 MG/2 ML SDV IV ONE ×2 (08:50→10:42)
[2017-05-12] MEDS ORDERED: Sodium Chloride 0.9% 1,000 ML IV ONE (08:50)
[2017-05-12 08:56] VITALS: BP 134/77
[2017-05-12] MEDS ORDERED: Ketorolac 30 MG/ML SDV IVPUSH ONE (08:57)
--- NOTE | 2017-05-12 08:58 | EDM.PDOC ---
ED HPI GENERAL MEDICAL PROBLEM - General Chief Complaint: Abdominal Pain Stated Complaint: STOMACH PAIN Time Seen by Provider: 05/12/17 08:49 Source of Information: Reports: Patient History Limitations: Reports: No Limitations - History of Present Illness INITIAL COMMENTS - FREE TEXT/NARRATIVE: 36 yo female c/o N&V w/ abdomen pain since 4:30am, one episode of emesis this AM after taking child to school. Pt. initial problems began 2002 and patient given ileostomy. Pt. states she sees Dr. Patterson in [facility] and has had 28 abdomen surgeries. Onset: Today Onset Date: 05/12/17 Onset Time: 04:30 Duration: Hour(s): Location: Reports: Abdomen Quality: Reports: Ache, Same as Previous Episode Severity: Moderate Improves with: Reports: None Worsens with: Reports: None Context: Reports: Other (PSHx. Multiple Abdomen surgeries) Associated Symptoms: Reports: Nausea/Vomiting Abdomen Pain Score (Numeric/FACES): 6 - Related Data Allergies Allergy/AdvReac Type Severity Reaction Status Date / Time zolpidem tartrate Allergy Hallucinati Verified 11/23/16 11:44 [From Fernando] ons Home Meds: Home Meds Albuterol Sulfate 1.25 mg IH ASDIRECTED PRN 02/07/16 [History] Furosemide [Lasix] 20 mg PO DAILY PRN 12/01/16 [History] FLUoxetine [PROzac] 20 mg PO DAILY 05/12/17 [History] Hydrocodone/Acetaminophen [Hydrocodon-Acetaminophen 5-325] 1 each PO Q6HR PRN [History] LORazepam [Ativan] 0.5 mg PO Q4HR PRN 05/12/17 [History] Past Medical History HEENT History: Reports: None Cardiovascular History: Reports: Other (See Below) Other Cardiovascular History: wolfs parkinson white Respiratory History: Reports: Asthma, COPD Gastrointestinal History: Reports: Bowel Obstruction, GERD Genitourinary History: Reports: Renal 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 Musculoskeletal History: Reports: None Neurological History: Reports: None Psychiatric History: Reports: Anxiety, Depression Endocrine/Metabolic History: Reports: None Hematologic History: Reports: None Immunologic History: Reports: None Oncologic (Cancer) History: Reports: None Dermatologic History: Reports: None - Infectious Disease History Infectious Disease History: Reports: MRSA - Past Surgical History Head Surgeries/Procedures: Reports: None HEENT Surgical History: Reports: Myringotomy w Tube(s), Tonsillectomy GI Surgical History: Reports: Cholecystectomy, Colon, Colonoscopy, Small Bowel, Other (See Below) Other GI Surgeries/Procedures: osteotomy Female Surgical History: Reports: Section Social & Family History - Family History Family Medical History: Noncontributory - Tobacco Use Smoking Status *Q: Current Every Day Smoker Years of Tobacco use: 16 Packs/Tins Daily: 1 Used Tobacco, but Quit: No Second Hand Smoke Exposure: Yes - Caffeine Use Caffeine Use: Reports: None Other Caffeine Use: mt. dew 3-4/day - Alcohol Use Days Per Week of Alcohol Use: 0 - Recreational Drug Use Recreational Drug Use: No Drug Use in Last 12 Months: Yes Recreational Drug Type: Reports: Marijuana/Hashish Recreational Drug Use Frequency: Weekly - Living Situation & Occupation Living situation: Reports: Single Occupation: Employed ED ROS GENERAL - Review of Systems Review Of Systems: See Below Constitutional: Reports: No Symptoms HEENT: Reports: No Symptoms Respiratory: Reports: No Symptoms Cardiovascular: Reports: No Symptoms Endocrine: Reports: No Symptoms GI/Abdominal: Reports: Abdominal Pain, Nausea, Vomiting : Reports: No Symptoms Musculoskeletal: Reports: No Symptoms Skin: Reports: No Symptoms Neurological: Reports: No Symptoms Psychiatric: Reports: No Symptoms Hematologic/Lymphatic: Reports: No Symptoms Immunologic: Reports: No Symptoms ED EXAM, GI/ABD - Physical Exam Exam: See Below Exam Limited By: No Limitations General Appearance: Alert, No Apparent Distress, Thin Eyes: Bilateral: Normal Appearance, EOMI Ears: Normal External Exam Nose: Normal Inspection Throat/Mouth: Normal Inspection Head: Atraumatic Neck: Normal Inspection Respiratory/Chest: No Respiratory Distress, Lungs Clear Cardiovascular: Normal Peripheral Pulses GI/Abdominal Exam: Soft, Tender (Left side and epigastric area), Abnormal Bowel Sounds (decreased) Back Exam: Normal Inspection Extremities: Normal Inspection, Normal Range of Motion Neurological: Alert, Oriented, CN II-XII Intact Psychiatric: Normal Affect Skin Exam: Warm, Dry, Intact Lymphatic: No Adenopathy Course - Vital Signs Text/Narrative:: Abdomen Xray show Left kidney stone Labs show elevated WBC 21.7 w/ 3+ toxic granulations and 4% bands Last Recorded V/S: Last Vital Signs Temp 36.7 C 05/12/17 08:51 Pulse 107 H 05/12/17 08:51 Resp 20 05/12/17 08:51 BP 134/77 05/12/17 08:51 Pulse Ox 100 05/12/17 08:51 - Orders/Labs/Meds Orders: Active Orders 24 hr Category Date Time Status CULTURE BLOOD [BC] Stat Lab 05/12/17 09:52 Received CULTURE BLOOD [BC] Stat Lab 05/12/17 09:59 Received LACTIC ACID [CHEM] Stat Lab 05/12/17 09:52 Received Labs: Laboratory Tests 05/12/17 05/12/17 05/12/17 Range/Units 09:03 09:03 09:06 WBC 21.5 H (5.0-10.0) 10^3/uL RBC 4.69 (4.2-5.4) 10^6/uL Hgb 12.6 (12.0-16.0) g/dL Hct 39.1 (37.0-47.0) % MCV 83.4 (80-100) fL MCH 26.9 L (27.0-34.0) pg MCHC 32.2 L (33.0-35.0) g/dL Plt Count 353 (150-450) 10^3/uL Neut % (Auto) 87.3 H (42.2-75.2) % Lymph % (Auto) 5.8 L (20.5-50.1) % [place] % (Auto) 5.5 (2-8) % Eos % (Auto) 1.3 (1.0-3.0) % Baso % (Auto) 0.1 (0.0-1.0) % Add Manual Diff Yes Neutrophils % (Manual) 81 H (42-75) % Band Neutrophils % 4 % Lymphocytes % (Manual) 7 L (20-50) % Monocytes % (Manual) 3 (2-8) % Eosinophils % (Manual) 4 H (1-3) % Myelocytes % 1 Toxic Granulation 3+ marked Platelet Estimate Adequate Sodium 137 (135-145) mmol/L Potassium 4.3 (3.6-5.0) mmol/L Chloride 108 (101-111) mmol/L Carbon Dioxide 20.0 L (21.0-31.0) mmol/L Anion Gap 13.3 BUN 12 (7-18) mg/dL Creatinine 0.5 L (0.6-1.3) mg/dL Est Cr Clr Drug Dosing 131.14 mL/min Estimated GFR (MDRD) > 60 BUN/Creatinine Ratio 24.00 Glucose 92 (74-105) mg/dL Calcium 9.2 (8.4-10.2) mg/dl Total Bilirubin 0.9 (0.2-1.0) mg/dL AST 19 (10-42) IU/L ALT 10 (10-60) IU/L Alkaline Phosphatase 58 (42-121) IU/L Total Protein 7.8 (6.7-8.2) g/dl Albumin 3.8 (3.2-5.5) g/dl Globulin 4.0 Albumin/Globulin Ratio 0.95 Amylase 48 (28-100) U/L Urine Color Yellow (YELLOW) Urine Appearance Slightly cloudy (CLEAR) Urine pH 5.5 (5.0-9.0) Ur Specific [place] >= 1.030 (1.005-1.030) Urine Protein 100 H (NEGATIVE) Urine Glucose (UA) Negative (NEGATIVE) Urine Ketones Negative (NEGATIVE) Urine Occult Blood Moderate H (NEGATIVE) Urine Nitrite Negative (NEGATIVE) Urine Bilirubin Negative (NEGATIVE) Urine Urobilinogen 0.2 (0.2-1.0) mg/dL Ur Leukocyte Esterase Trace H (NEGATIVE) Urine RBC 20-30 H /HPF Urine WBC 10-20 H (0-5/HPF) /HPF Ur Epithelial Cells Many H /HPF Urine Bacteria Moderate H (0-FEW/HPF) /HPF Urine Mucus Few H /LPF Urine Yeast Moderate H (0/HPF) /HPF Meds: Medications Discontinued Medications Generic Name Dose Route Start Last Admin Trade Name Freq PRN Reason Stop Dose Admin Hydromorphone HCl 1 mg 05/12/17 09:51 05/12/17 10:00 Dilaudid IVPUSH 05/12/17 09:52 1 mg ONETIME ONE Administration Sodium Chloride 1,000 mls @ 999 mls/hr 05/12/17 08:50 05/12/17 09:04 Normal Saline IV 05/12/17 09:50 999 mls/hr .BOLUS ONE Administration Piperacillin Sod/Tazobactam 100 mls @ 200 mls/hr 05/12/17 09:44 05/12/17 10: 00 Sod 3.375 gm/ Sodium Chloride IV 05/12/17 10:13 200 mls/hr ONETIME ONE Administration Ketorolac Tromethamine 30 mg 05/12/17 08:57 05/12/17 09:05 Toradol IVPUSH 05/12/17 08:58 30 mg ONETIME ONE Administration Ondansetron HCl 4 mg 05/12/17 08:50 05/12/17 09:04 Zofran IV 05/12/17 08:51 4 mg ONETIME ONE Administration Departure - Departure Time of Disposition: 10:16 Disposition: DC/Tfer to [facility] 02 Condition: Fair Clinical Impression: Kidney stone on left side Sepsis Qualifiers: Sepsis type: sepsis due to unspecified organism Qualified Code(s): A41.9 - Sepsis, unspecified organism Pain in the abdomen Qualifiers: Abdominal location: generalized Qualified Code(s): R10.84 - Generalized abdominal pain - Discharge Information Forms: ED Department Discharge, Interfacility Transfer EMTALA - My Orders Last 24 Hours: My Active Orders 05/12/17 09:52 CULTURE BLOOD [BC] Stat LACTIC ACID [CHEM] Stat 05/12/17 09:59 CULTURE BLOOD [BC] Stat - Assessment/Plan Last 24 Hours: My Active Orders 05/12/17 09:52 CULTURE BLOOD [BC] Stat LACTIC ACID [CHEM] Stat 05/12/17 09:59 CULTURE BLOOD [BC] Stat
[2017-05-12 09:29] LABS: CHLORIDE,CL 108 mmol/L (101-111); SODIUM,NA 137 mmol/L (135-145)
[2017-05-12] MEDS ORDERED: Piperacillin/Tazobactam 3.375 GM in Sodium Chloride 0.9% 100 ML IV ONE (09:44)
[2017-05-12] MEDS ORDERED: HYDROmorphone 1 MG/ML Syringe IVPUSH ONE (09:51)
--- NOTE | 2017-05-12 10:03 | CR ---
Clinical history: 36-year-old female in the emergency department with severe abdominal pain who signi ficantly has ileostomy and a history of "28 previous abdominal surgeries". Scan technique: Volume acquisition of data emergency unenhanced CT scan of the abdomen and pelvis obt ained with [facility] [place], [place]. All data archived in the PACS system for storage, reformatting and study. Interpretation: 1. *Large 8 x 10 mm oval calcification lodged at the UPJ left kidney (removed since previous exam 6 J une 2016) with associated mild ipsilateral pyelectasis (asymmetrically enlarged edematous appearing l eft kidney) i.e. nephrolithiasis. 2. No other evidence of nephrolithiasis or obstructive uropathy. Metric distended urinary bladder. 3. Ileostomy right lower quadrant. No sign of mechanical large or small bowel obstruction. 4. No pelvic or abdominal mass lesion. (Surgical clips upper midabdomen) No mesenteric or retroperito konrad lymphadenopathy. 5. *Abnormal gallbladder i.e. diseased appearance with edematous wall and dependent intraluminal ston e. U/S ingested. 6. Unenhanced liver, stomach, spleen, pancreas and adrenal glands unremarkable. 7. Lung bases clear. Normal caliber aortoiliac vessels. 8. No current evidence of mechanical bowel obstruction. No ascites or free intraperitoneal air. Conclusion: Diseased gallbladder. Ileostomy right lower quadrant. No sign of mechanical bowel obstruc tion. UPJ stone, left kidney.
[2017-05-12] MEDS ORDERED: LORazepam 2 MG/ML Syringe IVPUSH ONE (10:42)
== END 2017-05-12 11:20 ==
LOC: DL.ED 08:31
DX: A41.9 Sepsis, unspecified organism (principal); N20.0 Calculus of kidney; F17.210 Nicotine dependence, cigarettes, uncomplicated; J44.9 Chronic obstructive pulmonary disease, unspecified; F32.9 Major depressive disorder, single episode, unspecified; Z79.899 Other long term (current) drug therapy; Z93.2 Ileostomy status; Z88.8 Allergy status to other drugs, medicaments and biological substances
CPT/HCPCS: 36415; 74020; 80053; 81001; 82150; 83605; 85025; 87040; 96361; 96365; 96375; 99285; J1170; J1885; J2060; J2405; J2543; J7030; J7050

== ENCOUNTER 2017-05-14 17:22 | Emergency (ER) | payer MEDICARE, MEDICAID ==
[2017-05-14] MEDS ORDERED: Sodium Chloride 0.9% 1,000 ML IV ONE (17:42)
[2017-05-14] MEDS ORDERED: HYDROmorphone 1 MG/ML Syringe IVPUSH ONE (17:49)
--- NOTE | 2017-05-14 17:56 | EDM.PDOC ---
<Freddy Hensley M - Last Filed: 05/14/17 18:21> ED HPI GENERAL MEDICAL PROBLEM - General Chief Complaint: Flank Pain Stated Complaint: KIDNEY STONES,[id number] Time Seen by Provider: 05/14/17 17:51 Source of Information: Reports: Patient History Limitations: Reports: No Limitations - History of Present Illness INITIAL COMMENTS - FREE TEXT/NARRATIVE: This 36 yo female patient reports to the ED with left flank pain. The patient reports she was sent to [place] 2 days ago for a kidney stone as well as for an infection. While in [place], the patient reports she had a stent placed and was released between 1200 and 1300 today. The patient reports she started to experience increased pain about 1 hour from May and came directly to the ED. The patient reports she was given a [place] while at the hospital in [place], but has not filled her prescriptions yet (the patient is not due for more medication until 1800). Onset: Today Onset Date: 05/14/17 Onset Time: 17:00 Duration: Constant, Getting Worse Location: Reports: Abdomen, Back (left flank) Quality: Reports: Ache, Sharp Severity: Severe Improves with: Reports: None Worsens with: Reports: None Context: Reports: Other Left Flank Pain Score (Numeric/FACES): 10 - Related Data Allergies Allergy/AdvReac Type Severity Reaction Status Date / Time zolpidem tartrate Allergy Hallucinati Verified 11/23/16 11:44 [From Fernando] ons Home Meds: Home Meds Albuterol Sulfate 1.25 mg IH ASDIRECTED PRN 02/07/16 [History] Furosemide [Lasix] 20 mg PO DAILY PRN 12/01/16 [History] FLUoxetine [PROzac] 20 mg PO DAILY 05/12/17 [History] Hydrocodone/Acetaminophen [Hydrocodon-Acetaminophen 5-325] 1 each PO Q6HR PRN [History] LORazepam [Ativan] 0.5 mg PO Q4HR PRN 05/12/17 [History] Past Medical History HEENT History: Reports: None Cardiovascular History: Reports: Other (See Below) Other Cardiovascular History: wolfs parkinson white Respiratory History: Reports: Asthma, COPD Gastrointestinal History: Reports: Bowel Obstruction, GERD Genitourinary History: Reports: Renal Calculus 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 Musculoskeletal History: Reports: None Neurological History: Reports: None Psychiatric History: Reports: Anxiety, Depression Endocrine/Metabolic History: Reports: None Hematologic History: Reports: None Immunologic History: Reports: None Oncologic (Cancer) History: Reports: None Dermatologic History: Reports: None - Infectious Disease History Infectious Disease History: Reports: MRSA - Past Surgical History Head Surgeries/Procedures: Reports: None HEENT Surgical History: Reports: Myringotomy w Tube(s), Tonsillectomy GI Surgical History: Reports: Cholecystectomy, Colon, Colonoscopy, Small Bowel, Other (See Below) Other GI Surgeries/Procedures: ileostomy Female Surgical History: Reports: Section Social & Family History - Family History Family Medical History: Noncontributory - Tobacco Use Smoking Status *Q: Current Every Day Smoker Years of Tobacco use: 16 Packs/Tins Daily: 1 Used Tobacco, but Quit: No Second Hand Smoke Exposure: Yes - Caffeine Use Caffeine Use: Reports: Soda Other Caffeine Use: mt. dew 3-4/day - Alcohol Use Days Per Week of Alcohol Use: 0 - Recreational Drug Use Recreational Drug Use: No Drug Use in Last 12 Months: Yes Recreational Drug Type: Reports: Marijuana/Hashish Recreational Drug Use Frequency: Weekly - Living Situation & Occupation Living situation: Reports: Single Occupation: Employed ED ROS GENERAL - Review of Systems Review Of Systems: ROS reveals no pertinent complaints other than HPI. ED EXAM, RENAL/ - Physical Exam Exam: See Below Exam Limited By: No Limitations General Appearance: Alert, WD/WN, Severe Distress, Thin Eye Exam: Bilateral Eye: EOMI, Normal Inspection, PERRL Ears: Normal External Exam, Normal Canal, Hearing Grossly Normal, Normal TMs Nose: Normal Inspection, Normal Mucosa, No Blood Throat/Mouth: Normal Inspection, Normal Lips, Normal Teeth, Normal Gums, Normal Oropharynx, Normal Voice, No Airway Compromise Head: Atraumatic, Normocephalic Neck: Normal Inspection, Supple, Non-Tender, Full Range of Motion Respiratory/Chest: No Respiratory Distress, Lungs Clear, Normal Breath Sounds, No Accessory Muscle Use, Chest Non-Tender Cardiovascular: Normal Peripheral Pulses, Regular Rate, Rhythm, No Edema, No Gallop, No JVD, No Murmur, No Rub GI/Abdominal: Normal Bowel Sounds, Soft, No Abnormal Bruit, No Mass, Guarding, Tender (diffuse) (Female) Exam: Deferred Rectal (Female) Exam: Deferred Back Exam: CVA Tenderness (L) Extremities: Normal Inspection, Normal Range of Motion, Non-Tender, Normal Capillary Refill, No Pedal Edema Neurological: Alert, Oriented, CN II-XII Intact, Normal Cognition, Normal Gait, Normal Reflexes, No Motor/Sensory Deficits Psychiatric: Normal Affect, Normal Mood Skin Exam: Warm, Dry, Intact, Normal Color, No Rash Lymphatic: No Adenopathy Course - Vital Signs Last Recorded V/S: Last Vital Signs Temp 37.6 C 05/14/17 19:33 Pulse 99 05/14/17 19:33 Resp 18 05/14/17 19:33 BP 102/56 L 05/14/17 19:33 Pulse Ox 96 05/14/17 19:33 - Orders/Labs/Meds Labs: Laboratory Tests 05/14/17 05/14/17 05/14/17 Range/Units 17:30 17:30 17:50 WBC 16.8 H (5.0-10.0) 10^3/uL RBC 3.85 L (4.2-5.4) 10^6/uL Hgb 10.4 L D (12.0-16.0) g/dL Hct 32.3 L (37.0-47.0) % MCV 83.9 (80-100) fL MCH 27.0 (27.0-34.0) pg MCHC 32.2 L (33.0-35.0) g/dL Plt Count 288 (150-450) 10^3/uL Neut % (Auto) 78.3 H (42.2-75.2) % Lymph % (Auto) 10.5 L (20.5-50.1) % [place] % (Auto) 8.6 H (2-8) % Eos % (Auto) 2.3 (1.0-3.0) % Baso % (Auto) 0.3 (0.0-1.0) % Sodium (135-145) mmol/L Potassium (3.6-5.0) mmol/L Chloride (101-111) mmol/L Carbon Dioxide (21.0-31.0) mmol/L Anion Gap BUN (7-18) mg/dL Creatinine (0.6-1.3) mg/dL Est Cr Clr Drug Dosing mL/min Estimated GFR (MDRD) BUN/Creatinine Ratio Glucose (74-105) mg/dL Calcium (8.4-10.2) mg/dl Total Bilirubin (0.2-1.0) mg/dL AST (10-42) IU/L ALT (10-60) IU/L Alkaline Phosphatase (42-121) IU/L Total Protein (6.7-8.2) g/dl Albumin (3.2-5.5) g/dl Globulin Albumin/Globulin Ratio Urine Color Yellow (YELLOW) Urine Appearance Slightly cloudy (CLEAR) Urine pH 6.0 (5.0-9.0) Ur Specific [place] 1.025 (1.005-1.030) Urine Protein Trace H (NEGATIVE) Urine Glucose (UA) Negative (NEGATIVE) Urine Ketones Negative (NEGATIVE) Urine Occult Blood Large H (NEGATIVE) Urine Nitrite Negative (NEGATIVE) Urine Bilirubin Negative (NEGATIVE) Urine Urobilinogen 0.2 (0.2-1.0) mg/dL Ur Leukocyte Esterase Negative (NEGATIVE) Urine RBC 50-75 H /HPF Urine WBC 5-10 H (0-5/HPF) /HPF Ur Epithelial Cells Many H /HPF Urine Bacteria Moderate H (0-FEW/HPF) /HPF Urine Yeast Few H (0/HPF) /HPF Urine Opiates Screen Positive H (NEGATIVE) Ur Oxycodone Screen Negative (NEGATIVE) Urine Methadone Screen Negative (NEGATIVE) Ur Barbiturates Screen Negative (NEGATIVE) U Tricyclic Antidepress Negative (NEGATIVE) Ur Phencyclidine Scrn Negative (NEGATIVE) Ur Amphetamine Screen Negative (NEGATIVE) U Methamphetamines Scrn Negative (NEGATIVE) Urine MDMA Screen Negative (NEGATIVE) U Benzodiazepines Scrn Positive H (NEGATIVE) Urine Cocaine Screen Negative (NEGATIVE) U Marijuana (THC) Screen Negative (NEGATIVE) 05/14/17 Range/Units 17:50 WBC (5.0-10.0) 10^3/uL RBC (4.2-5.4) 10^6/uL Hgb (12.0-16.0) g/dL Hct (37.0-47.0) % MCV (80-100) fL MCH (27.0-34.0) pg MCHC (33.0-35.0) g/dL Plt Count (150-450) 10^3/uL Neut % (Auto) (42.2-75.2) % Lymph % (Auto) (20.5-50.1) % [place] % (Auto) (2-8) % Eos % (Auto) (1.0-3.0) % Baso % (Auto) (0.0-1.0) % Sodium 138 (135-145) mmol/L Potassium 3.4 L (3.6-5.0) mmol/L Chloride 107 (101-111) mmol/L Carbon Dioxide 23.0 (21.0-31.0) mmol/L Anion Gap 11.4 BUN 8 (7-18) mg/dL Creatinine 0.7 (0.6-1.3) mg/dL Est Cr Clr Drug Dosing 93.68 mL/min Estimated GFR (MDRD) > 60 BUN/Creatinine Ratio 11.42 Glucose 112 H (74-105) mg/dL Calcium 8.6 (8.4-10.2) mg/dl Total Bilirubin 1.0 (0.2-1.0) mg/dL AST 18 (10-42) IU/L ALT 9 L (10-60) IU/L Alkaline Phosphatase 53 (42-121) IU/L Total Protein 6.9 (6.7-8.2) g/dl Albumin 3.2 (3.2-5.5) g/dl Globulin 3.7 Albumin/Globulin Ratio 0.86 Urine Color (YELLOW) Urine Appearance (CLEAR) Urine pH (5.0-9.0) Ur Specific [place] (1.005-1.030) Urine Protein (NEGATIVE) Urine Glucose (UA) (NEGATIVE) Urine Ketones (NEGATIVE) Urine Occult Blood (NEGATIVE) Urine Nitrite (NEGATIVE) Urine Bilirubin (NEGATIVE) Urine Urobilinogen (0.2-1.0) mg/dL Ur Leukocyte Esterase (NEGATIVE) Urine RBC /HPF Urine WBC (0-5/HPF) /HPF Ur Epithelial Cells /HPF Urine Bacteria (0-FEW/HPF) /HPF Urine Yeast (0/HPF) /HPF Urine Opiates Screen (NEGATIVE) Ur Oxycodone Screen (NEGATIVE) Urine Methadone Screen (NEGATIVE) Ur Barbiturates Screen (NEGATIVE) U Tricyclic Antidepress (NEGATIVE) Ur Phencyclidine Scrn (NEGATIVE) Ur Amphetamine Screen (NEGATIVE) U Methamphetamines Scrn (NEGATIVE) Urine MDMA Screen (NEGATIVE) U Benzodiazepines Scrn (NEGATIVE) Urine Cocaine Screen (NEGATIVE) U Marijuana (THC) Screen (NEGATIVE) Meds: Medications Discontinued Medications Generic Name Dose Route Start Last Admin Trade Name Ramiro PRN Reason Stop Dose Admin Hydromorphone HCl 1 mg 05/14/17 17:49 05/14/17 17:54 Dilaudid IVPUSH 05/14/17 17:50 1 mg ONETIME ONE Administration Sodium Chloride 1,000 mls @ 999 mls/hr 05/14/17 17:42 05/14/17 17:54 Normal Saline IV 05/14/17 18:42 999 mls/hr .BOLUS ONE Administration Ondansetron HCl 4 mg 05/14/17 17:58 05/14/17 18:03 Zofran IV 05/14/17 17:59 4 mg ONETIME ONE Administration Departure - Departure Disposition: Home, Self-Care 01 Clinical Impression: Ureteric colic - Discharge Information Instructions: Kidney Stones, [id number] Forms: ED Department Discharge Additional Instructions: 1) continue present treatment and meds 2) drink lots of liquids 3) recheck as needed <Saud Rosas - Last Filed: 05/14/17 19:35> Course - Re-Assessments/Exams Free Text/Narrative Re-Assessment/Exam: 05/14/17 19:23 results discussed with pt who states has Rx for pain meds but hadn't gone to Pharm yet. Departure - Departure Time of Disposition: 19:35 Condition: Good
[2017-05-14] MEDS ORDERED: Ondansetron 4 MG/2 ML SDV IV ONE (17:58)
[2017-05-14 18:15] LABS: CHLORIDE,CL 107 mmol/L (101-111); SODIUM,NA 138 mmol/L (135-145)
[2017-05-14 19:34] VITALS: BP 102/56
== END 2017-05-14 19:33 | disposition home or self-care (01) ==
LOC: DL.ED 17:22
DX: N23 Unspecified renal colic (principal); Z87.442 Personal history of urinary calculi; F32.9 Major depressive disorder, single episode, unspecified; J44.9 Chronic obstructive pulmonary disease, unspecified; F17.210 Nicotine dependence, cigarettes, uncomplicated; Z88.8 Allergy status to other drugs, medicaments and biological substances; Z79.891 Long term (current) use of opiate analgesic
CPT/HCPCS: 36415; 74176; 80053; 80305; 81001; 85025; 96361; 96374; 96375; 99284; J1170; J2405; J7030

== ENCOUNTER 2017-05-15 09:46 | Emergency (ER) | payer MEDICARE, MEDICAID ==
[2017-05-15] MEDS ORDERED: Sodium Chloride 0.9% 1,000 ML IV ONE (10:12)
--- NOTE | 2017-05-15 10:22 | EDM.PDOC ---
ED HPI GENERAL MEDICAL PROBLEM - General Chief Complaint: Abdominal Pain Stated Complaint: EXTREME STOMACH PAIN Time Seen by Provider: 05/15/17 10:00 Source of Information: Reports: Patient History Limitations: Reports: No Limitations - History of Present Illness INITIAL COMMENTS - FREE TEXT/NARRATIVE: This 36 yo female patient returns to the ED due to left flank and left lower quadrant pain. The patient was seen for similar symptoms in the ED last evening. The patient was in [place] from 05/12/17-05/14/17 for a kidney stone and sepsis. The patient was discharged yesterday between noon and 1 pm. While the patient was on her way home from [place], the patient started experiencing increased abdominal pain. The patient had a CT done yesterday in the ED which demonstrated a 2 mm left ureterovesicle junction calculus, left hydronephrosis, but no other significant findings with no evidence of bowel obstruction. The patient reports she has been dealing with this pain since discharge last night. The patient has not attempted to call her doctor in [place] at this time. The patient reports she is not looking for pain medications, but the [place] () was not helping with the pain. The patient would like to be sent back to [place] to look into what is currently happening. The patient reports that she has not passed any contents from her ileostomy since leaving [place] yesterday (the patient did stop and have Arabic food on her way back to [place]). 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(s) ([place] (10325) last taken at 0700 ) Abdomen Pain Score (Numeric/FACES): 8 - Related Data Allergies Allergy/AdvReac Type Severity Reaction Status Date / Time zolpidem tartrate Allergy Hallucinati Verified 11/23/16 11:44 [From Fernando] ons Home Meds: Home Meds Albuterol Sulfate 1.25 mg IH ASDIRECTED PRN 02/07/16 [History] Furosemide [Lasix] 20 mg PO DAILY PRN 12/01/16 [History] FLUoxetine [PROzac] 20 mg PO DAILY 05/12/17 [History] Hydrocodone/Acetaminophen [Hydrocodon-Acetaminophen 5-325] 1 each PO Q6HR PRN [History] LORazepam [Ativan] 0.5 mg PO Q4HR PRN 05/12/17 [History] Past Medical History HEENT History: Reports: None Cardiovascular History: Reports: Other (See Below) Other Cardiovascular History: wolfs parkinson white Respiratory History: Reports: Asthma, COPD Gastrointestinal History: Reports: Bowel Obstruction, GERD Genitourinary History: Reports: Renal Calculus 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 Musculoskeletal History: Reports: None Neurological History: Reports: None Psychiatric History: Reports: Anxiety, Depression Endocrine/Metabolic History: Reports: None Hematologic History: Reports: None Immunologic History: Reports: None Oncologic (Cancer) History: Reports: None Dermatologic History: Reports: None - Infectious Disease History Infectious Disease History: Reports: MRSA - Past Surgical History Head Surgeries/Procedures: Reports: None HEENT Surgical History: Reports: Myringotomy w Tube(s), Tonsillectomy GI Surgical History: Reports: Cholecystectomy, Colon, Colonoscopy, Small Bowel, Other (See Below) Other GI Surgeries/Procedures: ileostomy Female Surgical History: Reports: Section Social & Family History - Family History Family Medical History: Noncontributory - Tobacco Use Smoking Status *Q: Current Every Day Smoker Years of Tobacco use: 20 Packs/Tins Daily: 1 Used Tobacco, but Quit: No Second Hand Smoke Exposure: Yes - Caffeine Use Caffeine Use: Reports: Energy Drinks, Soda Other Caffeine Use: [facility] 3-4/day - Alcohol Use Days Per Week of Alcohol Use: 0 - Recreational Drug Use Recreational Drug Use: No Drug Use in Last 12 Months: Yes Recreational Drug Type: Reports: Marijuana/Hashish Recreational Drug Use Frequency: Weekly - Living Situation & Occupation Living situation: Reports: Single Occupation: Employed ED ROS GENERAL - Review of Systems Review Of Systems: ROS reveals no pertinent complaints other than HPI. ED EXAM, GI/ABD - Physical Exam Exam: See Below Exam Limited By: No Limitations General Appearance: Alert, WD/WN, Severe Distress, Thin Eyes: Bilateral: Normal Appearance, EOMI Ears: Normal External Exam, Normal Canal, Hearing Grossly Normal, Normal TMs Nose: Normal Inspection, Normal Mucosa, No Blood Throat/Mouth: Normal Inspection, Normal Lips, Normal Teeth, Normal Gums, Normal Oropharynx, Normal Voice, No Airway Compromise Head: Atraumatic, Normocephalic Neck: Normal Inspection, Supple, Non-Tender, Full Range of Motion Respiratory/Chest: No Respiratory Distress, Lungs Clear, Normal Breath Sounds, No Accessory Muscle Use, Chest Non-Tender Cardiovascular: Normal Peripheral Pulses, Regular Rate, Rhythm, No Edema, No Gallop, No JVD, No Murmur, No Rub GI/Abdominal Exam: Normal Bowel Sounds, Soft, No Organomegaly, No Distention, No Abnormal Bruit, No Mass, Pelvis Stable, Tender (diffuse tenderness left lower quadrant) (Female) Exam: Deferred Rectal (Female) Exam: Deferred Back Exam: CVA Tenderness (L) Extremities: Normal Inspection, Normal Range of Motion, Non-Tender, Normal Capillary Refill, No Pedal Edema Neurological: Alert, Oriented, CN II-XII Intact, Normal Cognition, Normal Gait, Normal Reflexes, No Motor/Sensory Deficits Psychiatric: Normal Affect, Normal Mood Skin Exam: Warm, Dry, Intact, Normal Color, No Rash Lymphatic: No Adenopathy Course - Vital Signs Last Recorded V/S: Last Vital Signs Temp 36.8 C 05/15/17 10:00 Pulse 82 05/15/17 10:00 Resp 16 05/15/17 10:00 BP 129/79 05/15/17 10:00 Pulse Ox 129 H 05/15/17 10:00 - Orders/Labs/Meds Orders: Active Orders 24 hr Category Date Time Status Sodium Chloride 0.9% [Normal Saline] 1,000 ml Med 05/15/17 10:12 Active IV .BOLUS Saline Lock Insert [OM.PC] Routine Oth 05/15/17 10:12 Ordered Medication Orders Sodium Chloride (Normal Saline) 1,000 mls @ 125 mls/hr IV .BOLUS ONE Stop: 05/15/17 18:11 Last Admin: 05/15/17 10:36 Dose: 125 mls/hr Labs: Laboratory Tests 05/15/17 05/15/17 05/15/17 Range/Units 10:22 10:22 10:26 WBC 15.1 H (5.0-10.0) 10^3/uL RBC 3.53 L (4.2-5.4) 10^6/uL Hgb 9.6 L (12.0-16.0) g/dL Hct 30.0 L (37.0-47.0) % MCV 85.0 (80-100) fL MCH 27.2 (27.0-34.0) pg MCHC 32.0 L (33.0-35.0) g/dL Plt Count 261 (150-450) 10^3/uL Neut % (Auto) 77.8 H (42.2-75.2) % Lymph % (Auto) 10.1 L (20.5-50.1) % [place] % (Auto) 9.8 H (2-8) % Eos % (Auto) 2.0 (1.0-3.0) % Baso % (Auto) 0.3 (0.0-1.0) % Sodium 142 (135-145) mmol/L Potassium 3.0 L (3.6-5.0) mmol/L Chloride 109 (101-111) mmol/L Carbon Dioxide 24.0 (21.0-31.0) mmol/L Anion Gap 12.0 BUN 5 L (7-18) mg/dL Creatinine 0.7 (0.6-1.3) mg/dL Est Cr Clr Drug Dosing 93.68 mL/min Estimated GFR (MDRD) > 60 BUN/Creatinine Ratio 7.14 Glucose 98 (74-105) mg/dL Calcium 8.5 (8.4-10.2) mg/dl Total Bilirubin 0.8 (0.2-1.0) mg/dL AST 16 (10-42) IU/L ALT 8 L (10-60) IU/L Alkaline Phosphatase 48 (42-121) IU/L Total Protein 6.5 L (6.7-8.2) g/dl Albumin 2.9 L (3.2-5.5) g/dl Globulin 3.6 Albumin/Globulin Ratio 0.81 Urine Color (YELLOW) Urine Appearance (CLEAR) Urine pH (5.0-9.0) Ur Specific [place] (1.005-1.030) Urine Protein (NEGATIVE) Urine Glucose (UA) (NEGATIVE) Urine Ketones (NEGATIVE) Urine Occult Blood (NEGATIVE) Urine Nitrite (NEGATIVE) Urine Bilirubin (NEGATIVE) Urine Urobilinogen (0.2-1.0) mg/dL Ur Leukocyte Esterase (NEGATIVE) Urine RBC /HPF Urine WBC (0-5/HPF) /HPF Ur Epithelial Cells /HPF Urine Bacteria (0-FEW/HPF) /HPF Urine Mucus /LPF Urine Opiates Screen Positive H (NEGATIVE) Ur Oxycodone Screen Positive H (NEGATIVE) Urine Methadone Screen Negative (NEGATIVE) Ur Barbiturates Screen Negative (NEGATIVE) U Tricyclic Antidepress Negative (NEGATIVE) Ur Phencyclidine Scrn Negative (NEGATIVE) Ur Amphetamine Screen Negative (NEGATIVE) U Methamphetamines Scrn Negative (NEGATIVE) Urine MDMA Screen Negative (NEGATIVE) U Benzodiazepines Scrn Positive H (NEGATIVE) Urine Cocaine Screen Negative (NEGATIVE) U Marijuana (THC) Screen Negative (NEGATIVE) 05/15/17 Range/Units 10:26 WBC (5.0-10.0) 10^3/uL RBC (4.2-5.4) 10^6/uL Hgb (12.0-16.0) g/dL Hct (37.0-47.0) % MCV (80-100) fL MCH (27.0-34.0) pg MCHC (33.0-35.0) g/dL Plt Count (150-450) 10^3/uL Neut % (Auto) (42.2-75.2) % Lymph % (Auto) (20.5-50.1) % [place] % (Auto) (2-8) % Eos % (Auto) (1.0-3.0) % Baso % (Auto) (0.0-1.0) % Sodium (135-145) mmol/L Potassium (3.6-5.0) mmol/L Chloride (101-111) mmol/L Carbon Dioxide (21.0-31.0) mmol/L Anion Gap BUN (7-18) mg/dL Creatinine (0.6-1.3) mg/dL Est Cr Clr Drug Dosing mL/min Estimated GFR (MDRD) BUN/Creatinine Ratio Glucose (74-105) mg/dL Calcium (8.4-10.2) mg/dl Total Bilirubin (0.2-1.0) mg/dL AST (10-42) IU/L ALT (10-60) IU/L Alkaline Phosphatase (42-121) IU/L Total Protein (6.7-8.2) g/dl Albumin (3.2-5.5) g/dl Globulin Albumin/Globulin Ratio Urine Color Yellow (YELLOW) Urine Appearance Cloudy (CLEAR) Urine pH 6.0 (5.0-9.0) Ur Specific [place] >= 1.030 (1.005-1.030) Urine Protein 100 H (NEGATIVE) Urine Glucose (UA) Negative (NEGATIVE) Urine Ketones Negative (NEGATIVE) Urine Occult Blood Large H (NEGATIVE) Urine Nitrite Negative (NEGATIVE) Urine Bilirubin Negative (NEGATIVE) Urine Urobilinogen 0.2 (0.2-1.0) mg/dL Ur Leukocyte Esterase Trace H (NEGATIVE) Urine RBC 75-100 H /HPF Urine WBC 10-20 H (0-5/HPF) /HPF Ur Epithelial Cells Many H /HPF Urine Bacteria Few (0-FEW/HPF) /HPF Urine Mucus Moderate H /LPF Urine Opiates Screen (NEGATIVE) Ur Oxycodone Screen (NEGATIVE) Urine Methadone Screen (NEGATIVE) Ur Barbiturates Screen (NEGATIVE) U Tricyclic Antidepress (NEGATIVE) Ur Phencyclidine Scrn (NEGATIVE) Ur Amphetamine Screen (NEGATIVE) U Methamphetamines Scrn (NEGATIVE) Urine MDMA Screen (NEGATIVE) U Benzodiazepines Scrn (NEGATIVE) Urine Cocaine Screen (NEGATIVE) U Marijuana (THC) Screen (NEGATIVE) Meds: Medications Generic Name Dose Route Start Last Admin Trade Name Freq PRN Reason Stop Dose Admin Sodium Chloride 1,000 mls @ 125 mls/hr 05/15/17 10:12 05/15/17 10:36 Normal Saline IV 05/15/17 18:11 125 mls/hr .BOLUS ONE Administration Discontinued Medications Generic Name Dose Route Start Last Admin Trade Name Freq PRN Reason Stop Dose Admin Hydromorphone HCl 1 mg 05/15/17 11:03 05/15/17 11:14 Dilaudid IVPUSH 05/15/17 11:04 1 mg ONETIME ONE Administration - Re-Assessments/Exams Free Text/Narrative Re-Assessment/Exam: 05/15/17 11:14 During the visit, the patient had multiple requests for pain medication while waiting for lab results. Departure - Departure Time of Disposition: 11:15 Disposition: DC/Tfer to Acute Hospital 02 Condition: Poor Clinical Impression: Left flank pain, Calculus of left kidney Leukocytosis Qualifiers: Leukocytosis type: bandemia Qualified Code(s): D72.825 - Bandemia - Discharge Information Forms: Interfacility Transfer EMTALA Care Plan Goals: Discussed the patient's history, examination, lab and CT results (05/14/17) with Dr. Leigh (Hospitalist with [facility] in [place]). Dr. Leigh accepted the patient for continued evaluation and further management. The patient was given Dilaudid (1 mg) IV while in the ED. The patient will be transported by [facility]. - My Orders Last 24 Hours: My Active Orders 05/15/17 10:12 Sodium Chloride 0.9% [Normal Saline] 1,000 ml IV .BOLUS Saline Lock Insert [OM.PC] Routine - Assessment/Plan Last 24 Hours: My Active Orders 05/15/17 10:12 Sodium Chloride 0.9% [Normal Saline] 1,000 ml IV .BOLUS Saline Lock Insert [OM.PC] Routine
[2017-05-15 10:51] LABS: CHLORIDE,CL 109 mmol/L (101-111); SODIUM,NA 142 mmol/L (135-145)
[2017-05-15] MEDS ORDERED: HYDROmorphone 1 MG/ML Syringe IVPUSH ONE (11:03)
[2017-05-15 11:18] VITALS: BP 121/77
== END 2017-05-15 11:37 ==
LOC: DL.ED 09:46
DX: N13.2 Hydronephrosis with renal and ureteral calculous obstruction (principal); D72.825 Bandemia; J44.9 Chronic obstructive pulmonary disease, unspecified; F17.210 Nicotine dependence, cigarettes, uncomplicated; Z88.8 Allergy status to other drugs, medicaments and biological substances; Z79.899 Other long term (current) drug therapy
CPT/HCPCS: 36415; 80053; 80305; 81001; 85025; 96361; 96374; 99285; J1170; J7030; 99284

== ENCOUNTER 2017-09-04 10:48 | Emergency (ER) | payer MEDICARE, MEDICAID ==
[2017-09-04 10:55] VITALS: BP 104/58
[2017-09-04] MEDS ORDERED: Albuterol/Ipratropium 3.0-0.5 MG/3 ML Neb Soln NEB ONE (11:22)
[2017-09-04] MEDS ORDERED: Benzonatate 100 MG Cap PO ONE (11:23)
[2017-09-04] MEDS ORDERED: Albuterol 6.7 GM Inhaler INH ONE (12:14)
--- NOTE | 2017-09-04 12:49 | EDM.PDOC ---
Scribed by Trupti Starr 09/04/17 [id number] for Julio Armendariz MD ED HPI GENERAL MEDICAL PROBLEM - General Chief Complaint: Respiratory Problem Stated Complaint: FLU, GOING TO LUNGS Time Seen by Provider: 09/04/17 10:57 Source of Information: Reports: Patient, RN, RN Notes Reviewed History Limitations: Reports: No Limitations - History of Present Illness INITIAL COMMENTS - FREE TEXT/NARRATIVE: Patient presents with 3 to 4 days duration of cough, congestion and shortness of breath. Patient states that she has been out of her Albuterol inhaler for some time because she has not needed it. She is uncertain if she has had a fever. Denies chills. Denies sputum production. No known sick contacts. Duration: Getting Worse Location: Reports: Other (lungs) Quality: Reports: Ache Severity: Moderate Associated Symptoms: Reports: No Other Symptoms Treatments SHAREPOINT ARCHITECT: Reports: Acetaminophen, Other (see below) (cough and decongestant medications without relief. ) - Related Data Allergies Allergy/AdvReac Type Severity Reaction Status Date / Time zolpidem tartrate Allergy Hallucinati Verified 09/04/17 10:58 [From Fernando] ons Home Meds: Home Meds Furosemide [Lasix] 20 mg PO DAILY PRN 12/01/16 [History] FLUoxetine [PROzac] 20 mg PO DAILY 05/12/17 [History] LORazepam [Ativan] 0.5 mg PO Q4HR PRN 05/12/17 [History] Past Medical History HEENT History: Reports: None Cardiovascular History: Reports: Other (See Below) Other Cardiovascular History: wolfs parkinson white Respiratory History: Reports: Asthma, COPD Gastrointestinal History: Reports: Bowel Obstruction, GERD Genitourinary History: Reports: Renal Calculus 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 Musculoskeletal History: Reports: None Neurological History: Reports: None Psychiatric History: Reports: Anxiety, Depression Endocrine/Metabolic History: Reports: None Hematologic History: Reports: None Immunologic History: Reports: None Oncologic (Cancer) History: Reports: None Dermatologic History: Reports: None - Infectious Disease History Infectious Disease History: Reports: MRSA - Past Surgical History Head Surgeries/Procedures: Reports: None HEENT Surgical History: Reports: Myringotomy w Tube(s), Tonsillectomy GI Surgical History: Reports: Cholecystectomy, Colon, Colonoscopy, Small Bowel, Other (See Below) Other GI Surgeries/Procedures: ileostomy Female Surgical History: Reports: Section Social & Family History - Family History Family Medical History: Noncontributory - Tobacco Use Smoking Status *Q: Current Every Day Smoker Years of Tobacco use: 20 Packs/Tins Daily: 1 Used Tobacco, but Quit: No Second Hand Smoke Exposure: Yes - Caffeine Use Caffeine Use: Reports: Energy Drinks, Soda Other Caffeine Use: [facility] 3-4/day - Alcohol Use Days Per Week of Alcohol Use: 0 - Recreational Drug Use Recreational Drug Use: No Drug Use in Last 12 Months: Yes Recreational Drug Type: Reports: Marijuana/Hashish Recreational Drug Use Frequency: Weekly - Living Situation & Occupation Living situation: Reports: Single Occupation: Employed ED ROS GENERAL - Review of Systems Review Of Systems: ROS reveals no pertinent complaints other than HPI. ED EXAM, GENERAL - Physical Exam Exam: See Below Exam Limited By: No Limitations General Appearance: Alert, WD/WN, No Apparent Distress Eye Exam: Bilateral Eye: Normal Inspection Ears: Normal External Exam, Normal Canal, Hearing Grossly Normal, Other ( bilateral TMs with clear air fluid levels and mild bulging. No erythema. No perforation. No drainage. ) Nose: Other (moderate nasal congestion with clear to yellow mucus drainage. ) Throat/Mouth: Normal Inspection, Normal Lips, Normal Teeth, Normal Gums, Normal Voice, No Airway Compromise, Other (mild pharyngea erythema with postnasal drip. ) Head: Atraumatic, Normocephalic Neck: Full Range of Motion, Other (shoddy cervical lymphadenopathy, no nuchal rigidity.) Respiratory/Chest: No Respiratory Distress, No Accessory Muscle Use, Decreased Breath Sounds, Crackles, Wheezing, Other (deep dry cough). No: Rales, Rhonchi, Retractions, Splinting Cardiovascular: Regular Rate, Rhythm, No Murmur GI/Abdominal: Normal Bowel Sounds, Soft, Non-Tender, No Distention (Female) Exam: Deferred Rectal (Female) Exam: Deferred Back Exam: Normal Inspection Extremities: Normal Inspection Neurological: Alert, Oriented, No Motor/Sensory Deficits Psychiatric: Normal Affect, Normal Mood Skin Exam: Warm, Dry, Intact, Normal Color, No Rash Course - Vital Signs Last Recorded V/S: Last Vital Signs Temp 37.2 C 09/04/17 10:53 Pulse 94 09/04/17 10:53 Resp 16 09/04/17 10:53 BP 104/58 L 09/04/17 10:53 Pulse Ox 97 09/04/17 10:53 - Orders/Labs/Meds Orders: Active Orders 24 hr Category Date Time Status RT Aerosol Therapy [RC] ASDIRECTED Care 09/04/17 11:23 Active RT Post Treatment Assessment [RC] Click to Edit Care 09/04/17 12:14 Active RT Pre-Treatment Assessment [RC] Click to Edit Care 09/04/17 12:14 Active Chest 2V [CR] Stat Exams 09/04/17 11:20 Taken CULTURE STREP A CONFIRMATION [RM] Stat Lab 09/04/17 12:15 Results STREP SCRN A RAPID W CULT CONF [] Stat Lab 09/04/17 12:15 Results Labs: Laboratory Tests 09/04/17 Range/Units 11:29 WBC 11.1 H (5.0-10.0) 10^3/uL RBC 4.56 (4.2-5.4) 10^6/uL Hgb 11.8 L D (12.0-16.0) g/dL Hct 37.1 (37.0-47.0) % MCV 81.4 D (80-100) fL MCH 25.9 L (27.0-34.0) pg MCHC 31.8 L (33.0-35.0) g/dL Plt Count 231 (150-450) 10^3/uL Neut % (Auto) 66.5 (42.2-75.2) % Lymph % (Auto) 24.3 (20.5-50.1) % [place] % (Auto) 6.7 (2-8) % Eos % (Auto) 2.3 (1.0-3.0) % Baso % (Auto) 0.2 (0.0-1.0) % Rapid Strep, Influenza A/B: negative Meds: Medications Discontinued Medications Generic Name Dose Route Start Last Admin Trade Name Freq PRN Reason Stop Dose Admin Albuterol 6.7 gm 09/04/17 12:14 09/04/17 12:30 Proventil Hfa INH 09/04/17 12:15 2 puff ONETIME ONE Administration Albuterol/Ipratropium 3 ml 09/04/17 11:22 09/04/17 11:28 Duoneb 3.0-0.5 Mg/3 Ml NEB 09/04/17 11:23 3 ml ONETIME ONE Administration Benzonatate 200 mg 09/04/17 11:23 09/04/17 11:29 Tessalon Perles PO 09/04/17 11:24 200 mg ONETIME ONE Administration - Radiology Interpretation Free Text/Narrative:: Chest x-ray: No acute process. See rad report. Departure - Departure Time of Disposition: 12:15 Disposition: Home, Self-Care 01 Condition: Fair Clinical Impression: Bronchitis with bronchospasm Otitis media Qualifiers: Otitis media type: serous Chronicity: acute Laterality: bilateral Recurrence: not specified as recurrent Qualified Code(s): H65.03 - Acute serous otitis media , bilateral URI (upper respiratory infection) Qualifiers: URI type: unspecified viral URI Qualified Code(s): J06.9 - Acute upper respiratory infection, unspecified - Discharge Information Instructions: Acute Bronchitis, Adult, [id number], Bronchospasm, Adult, Easy- to-Read Forms: ED Department Discharge Additional Instructions: RX: Zithromax 250mg. RX: Promethazine codeine syrup 240ml. Use Albuterol inhaler 2 puffs while awake as needed for cough and wheezing. Follow up in clinic if not improving in 4 to 5 days. - My Orders Last 24 Hours: My Active Orders 09/04/17 11:20 Chest 2V [CR] Stat 09/04/17 11:23 RT Aerosol Therapy [RC] ASDIRECTED 09/04/17 12:14 RT Post Treatment Assessment [RC] Click to Edit RT Pre-Treatment Assessment [RC] Click to Edit 09/04/17 12:15 CULTURE STREP A CONFIRMATION [RM] Stat STREP SCRN A RAPID W CULT CONF [RM] Stat - Assessment/Plan Last 24 Hours: My Active Orders 09/04/17 11:20 Chest 2V [CR] Stat 09/04/17 11:23 RT Aerosol Therapy [RC] ASDIRECTED 09/04/17 12:14 RT Post Treatment Assessment [RC] Click to Edit RT Pre-Treatment Assessment [RC] Click to Edit 09/04/17 12:15 CULTURE STREP A CONFIRMATION [RM] Stat STREP SCRN A RAPID W CULT CONF [RM] Stat I have read and agree with the documentation that has been completed regarding this visit. By signing this record, I attest that the documentation was completed in my physical presence and is an accurate record of the encounter.
== END 2017-09-04 12:35 | disposition home or self-care (01) ==
LOC: DL.ED 10:48
DX: J06.9 Acute upper respiratory infection, unspecified (principal); J44.9 Chronic obstructive pulmonary disease, unspecified; K21.9 Gastro-esophageal reflux disease without esophagitis; F32.9 Major depressive disorder, single episode, unspecified; F17.210 Nicotine dependence, cigarettes, uncomplicated; Z79.899 Other long term (current) drug therapy; Z88.8 Allergy status to other drugs, medicaments and biological substances
CPT/HCPCS: 36415; 71046; 85025; 87081; 87430; 87804; 94640; 99284; A9270; 99283